=== PATIENT | female | born 1945 | race Caucasian/White ===

== ENCOUNTER → 2017-05-08 | Outpatient (CLI) | payer OTHER ==
[~2017-05-08] MED LIST: AMLO-114 PO; METO100T44 PO; VALS320T2 PO
--- NOTE | 2017-05-08 12:50 | DIAGNOSTIC IMAGING REPORT ---
CERVICAL SPINE 2 OR 3 VIEWS CLINICAL HISTORY: Cervical arthritis. COMPARISON STUDY: No previous studies for comparison. FINDINGS: There is no fracture within the cervical spine. Vertebral body heights are maintained. There is minimal disc space narrowing at C6-C7. There is moderate multilevel facet arthrosis. Prevertebral soft tissues are unremarkable. IMPRESSION: 1. No cervical spine fracture. 2. Mild multilevel degenerative disc disease and moderate multilevel facet arthrosis. Electronically signed by: Az Hackett M.D. 05/08/2017 12:49 PM Dictated Date/Time: 05/08/2017 12:45 PM
== END | disposition home or self-care (01) ==
LOC: C.RADBC 12:14
PROVIDERS: ATTEND Internal Medicine
DX: M46.92 Unspecified inflammatory spondylopathy, cervical region (principal)

== ENCOUNTER → 2017-06-06 | Outpatient (CLI) | payer OTHER ==
[~2017-06-06] MED LIST changes: -METO100T44 PO; +METO1TAB69 PO
[2017-06-06 10:57] LABS: BASO % 0.4 %; BASO ABS # 0.04 K/uL (0-0.2); COMPLETE YES; EOS % 6.1 %; HEMATOCRIT 43.7 % (37-47); IG% 0.2 %; LYMPH % 32.7 %; LYMPH ABS # 2.94 K/uL (1.2-3.4); MEAN CELL VOLUME 84.5 fL (80-100); MEAN CORPUSCULAR HEMOGLOBIN 28.8 pg (25-34); MEAN CORPUSCULAR HGB CONC 34.1 g/dl (32-36); MONO % 6.5 %; NEUT % 54.1 %; PLATELET COUNT 278 K/uL (130-400); RED BLOOD COUNT 5.17 M/uL (4.2-5.4); WHITE BLOOD COUNT 8.98 K/uL (4.8-10.8)
[2017-06-06 11:25] LABS: ALT/SGPT 31 U/L (12-78); AST/SGOT 21 U/L (15-37); BLOOD UREA NITROGEN 11 mg/dl (7-18); CALCIUM 9.4 mg/dl (8.5-10.1); CARBON DIOXIDE 31 mmol/L (21-32); CHLORIDE 100 mmol/L (98-107); CREATININE 0.62 mg/dl (0.60-1.20); GLUCOSE 87 mg/dl (70-99); POTASSIUM 3.6 mmol/L (3.5-5.1); SODIUM 137 mmol/L (136-145)
[2017-06-06 11:36] LABS: ALB/GLOB RATIO 0.9 (0.9-2); ALKALINE PHOSPHATASE 90 U/L (45-117); CHOLESTEROL 233 mg/dl (0-200); CHOLESTEROL/HDL RATIO 3.4; HDL CHOLESTEROL 69 mg/dl; LDL CHOLESTEROL CALCULATED 146 mg/dl; TRIGLYCERIDES 90 mg/dl (0-150); VERY LOW DENSITY LIPOPROT CALC 18 mg/dl
[2017-06-06 12:27] LABS: ESTIMATED AVERAGE GLUCOSE 120 mg/dl; HA1C FLAG Normal (Normal)
--- NOTE | 2017-06-12 13:07 | CODING QUERY MEDICAL NECESSITY ---
SUPPORTING DIAGNOSIS NEEDED Dr. Mtz, A supporting diagnosis is required for the test/procedure performed on this patient in order for us to be reimbursed by the patient's insurance. Please provide a supporting diagnosis for the following test/procedure listed below next to the test name along with your signature. *If there is no additional diagnosis for this patient that would support the following test/procedure please document that below next to the test/procedure. Test(s)/Procedure(s) that require a supporting diagnosis: * ([id number]) VITAMIN D ASSAY DIAGNOSIS: * [id number] GLYCATED HEMOGLOBIN DIAGNOSIS: DATE OF SERVICE: 06/06/17 Provider Signature: Date: Thank you [facility] Once completed, please kindly fax back to [phone] For questions please call [phone]
== END | disposition home or self-care (01) ==
LOC: C.LAB 10:12
PROVIDERS: ATTEND Internal Medicine
DX: K21.9 Gastro-esophageal reflux disease without esophagitis (principal); E55.9 Vitamin D deficiency, unspecified; R73.01 Impaired fasting glucose

== ENCOUNTER → 2017-07-07 | Outpatient (CLI) | payer OTHER | END | disposition home or self-care (01) | LOC: C.MAMM 09:47 | PROVIDERS: ATTEND Internal Medicine | DX: E55.9 Vitamin D deficiency, unspecified (principal); M85.851 Other specified disorders of bone density and structure, right thigh; M85.852 Other specified disorders of bone density and structure, left thigh ==

== ENCOUNTER → 2018-06-25 | Outpatient (CLI) | payer OTHER ==
[~2018-06-25] MED LIST changes: -AMLO-114 PO; +AMLO10TA3 PO; +METO100T44 PO; -METO1TAB69 PO
[2018-06-25 12:59] LABS: BASO % 0.4 %; BASO ABS # 0.04 K/uL (0-0.2); EOS ABS # 0.47 K/uL (0-0.5); HEMATOCRIT 42.2 % (37-47); HEMOGLOBIN 14.4 g/dL (12.0-16.0); IG# 0.01 K/uL (0.00-0.02); LYMPH % 31.9 %; LYMPH ABS # 3.01 K/uL (1.2-3.4); MEAN CELL VOLUME 84.2 fL (80-100); MEAN CORPUSCULAR HEMOGLOBIN 28.7 pg (25-34); MEAN CORPUSCULAR HGB CONC 34.1 g/dl (32-36); MEAN PLATELET VOLUME 12.4 fL (7.4-10.4); MONO % 8.4 %; MONO ABS # 0.79 K/uL (0.11-0.59); NEUT % 54.2 %; NEUT ABS # 5.12 K/uL (1.4-6.5); PLATELET COUNT 270 K/uL (130-400); RED CELL DISTRIBUTION WIDTH SD 42.7 fL (36.4-46.3); WHITE BLOOD COUNT 9.44 K/uL (4.8-10.8)
[2018-06-25 13:26] LABS: HEMOGLOBIN A1C 5.8 % (4.5-5.6)
[2018-06-25 13:54] LABS: ALBUMIN 3.6 gm/dl (3.4-5.0); ALKALINE PHOSPHATASE 85 U/L (45-117); ALT/SGPT 27 U/L (12-78); AST/SGOT 19 U/L (15-37); BLOOD UREA NITROGEN 11 mg/dl (7-18); CALCIUM 8.8 mg/dl (8.5-10.1); CARBON DIOXIDE 27 mmol/L (21-32); CHOLESTEROL 220 mg/dl (0-200); CREATININE 0.62 mg/dl (0.60-1.20); GLUCOSE 86 mg/dl (70-99); LDL CHOLESTEROL CALCULATED 134 mg/dl; POTASSIUM 3.6 mmol/L (3.5-5.1); SODIUM 135 mmol/L (136-145)
== END | disposition home or self-care (01) ==
LOC: C.LABBC 10:55
PROVIDERS: ATTEND Internal Medicine
DX: E55.9 Vitamin D deficiency, unspecified (principal); I10 Essential (primary) hypertension; K21.9 Gastro-esophageal reflux disease without esophagitis; K58.9 Irritable bowel syndrome, unspecified; R10.9 Unspecified abdominal pain; R73.01 Impaired fasting glucose

== ENCOUNTER 2023-09-14 15:24 | Observation (INO) ==
[2023-09-14] MEDS ORDERED: SODIUM CHLORIDE 0.9% 500 ML IV STA (15:49)
[2023-09-14] MEDS ORDERED: ACETAMINOPHEN 325 MG TAB PO STA (15:49)
[2023-09-14] MEDS ORDERED: ONDANSETRON INJ 2 MG/ML 2 ML VIAL IV STA ×2 (15:49→18:55)
[2023-09-14 17:56] LABS: Basophils # (auto) 0.02 K/uL (0.00-0.20); Basophils % (auto) 0.2 %; Hemoglobin 14.5 g/dl (12.0-16.0); Immature Granulocytes # (auto) 0.03 K/uL (0.01-0.20); Immature Granulocytes % (auto) 0.3 %; Lymphocytes # (auto) 0.72 K/uL (1.20-3.40); Lymphocytes % (auto) 7.1 %; Mean Corpuscular Hemoglobin 28.8 pg (25.0-34.0); Mean Corpuscular Hgb Conc 34.5 g/dL (32.0-36.0); Mean Corpuscular Volume 83.5 fL (80.0-100.0); Mean Platelet Volume 12.4 fL (9.4-12.4); Monocytes # (auto) 1.03 K/uL (0.11-0.59); Monocytes % (auto) 10.1 %; Neutrophils # (auto) 8.37 K/uL (1.40-6.50); Neutrophils % (auto) 82.3 %; Platelet Count 187 K/uL (130-400); RDW Coefficient of Variation 13.5 % (11.5-14.5); RDW Standard Deviation 41.1 fL (36.4-46.3); Red Blood Count 5.03 M/uL (4.20-5.40); White Blood Count 10.17 K/ul (4.8-10.8)
[2023-09-14 18:12] LABS: Alanine Aminotransferase 21 U/L (7-52); Albumin Globulin Ratio 1.2 (0.9-2); Albumin Level 4.3 gm/dl (3.4-5.0); Alkaline Phosphatase 62 U/L (34-104); Anion Gap 10 (3-11); Aspartate Aminotransferase 38 U/L (13-39); BUN Creatinine Ratio 15.8 (10-20); Bilirubin,Total 0.5 mg/dl (0.2-1.0); Blood Urea Nitrogen 12 mg/dl (6-23); Calcium 8.8 mg/dl (8.6-10.3); Carbon Dioxide 28 mmol/L (21-32); Chloride 88 mmol/L (98-107); Est GFR (African American) 87.7 ml/min; Est GFR (Non-African American) 75.7 ml/min; Globulin 3.5 gm/dl (2.5-4.0); Glucose 121 mg/dl (70-99(Fasting)); Lipase 28 U/L (11-82); Potassium 3.3 mmol/L (3.5-5.1); Sodium 126 mmol/L (136-145); Total Protein 7.8 gm/dl (6.0-8.3)
[2023-09-14 18:19] LABS: Troponin I High Sensitivity 35.9 pg/ml (0-14)
[2023-09-14] MEDS ORDERED: ONDANSETRON INJ 2 MG/ML 2 ML VIAL ONE (18:38)
[2023-09-14] MEDS ORDERED: ACETAMINOPHEN 325 MG TAB ONE (18:39)
[2023-09-14] MEDS ORDERED: SODIUM CHLORIDE 0.9% 1,000 ML IV ONE (18:55)
[2023-09-14 19:15] LABS: Appearance Urine Clear (Clear); Bacteria Urine Automated Negative (Negative); Bilirubin Urine Negative (Negative); Blood Urine Negative (Negative); Color Urine Yellow; Epithelial Cell Urine Auto >30 /lpf (0-5); Glucose Urine UA Negative (Negative); Ketones Urine 3+ (Negative); Leukocyte Esterase Urine Negative (Negative); Nitrite Urine Negative (Negative); Protein Urine 1+ (Negative); Urobilinogen Urine Negative (Negative)
[2023-09-14] MEDS ORDERED: OPTIRAY 320 500ml IV ONE (19:27)
[2023-09-14 19:30] LABS: Mucus Urine Present (None Prsent)
--- NOTE | 2023-09-14 19:47 | XRay Report ---
XR chest 1V portable CLINICAL HISTORY: fever TECHNIQUE: Single frontal radiograph of the chest was obtained. Comparison: Comparison is made to chest radiograph 04/16/2020 FINDINGS: No lines and tubes are seen. Calcified aortic knob is seen. The lungs are clear. No evidence of pleur al effusion or pneumothorax. IMPRESSION: No acute abnormalities and in particular no radiographic evidence of pneumonia. ACT 112: Negative or not required by law. Electronically signed by: Milo Do M.D. 09/14/2023 7:46 PM
--- NOTE | 2023-09-14 19:59 | CT Scan Report ---
CT angio chest PE protocol CLINICAL HISTORY: ro PE TECHNIQUE: Multidetector row helical CT of the chest was performed with angiographic protocol. Perez l and sagittal reformations were obtained. Coronal and sagittal MIPS were obtained from the axial max a set and were submitted for review. Automated dose lowering techniques and/or adjustment according to patient size were utilized for this exam. CT DOSE: 1976.24 mGy.cm Comparison: None available at the time of this dictation. FINDINGS: Lungs and pleura: Minimal atelectasis at the left lung base. Biapical scarring is seen. Heart and pericardium: Heart size is normal. No pericardial effusion. Vessels: No evidence of pulmonary embolism. Mediastinum and lorenza: Subcentimeter lymph nodes are seen. Chest wall and lower neck: Unremarkable. Abdomen: Cholelithiasis is seen without evidence of cholecystitis. Hepatic cysts are partially visual ized. There is a small hiatal hernia. Bones: Degenerative changes in the thoracic spine. IMPRESSION: No acute abnormality and in particular no evidence of pulmonary embolus. ACT 112: Negative or not required by law. Electronically signed by: Milo Do M.D. 09/14/2023 7:58 PM
--- NOTE | 2023-09-14 19:59 | CT Scan Report ---
CT cervical spine wo con CLINICAL HISTORY: fall TECHNIQUE: Multidetector row helical CT of the cervical spine was performed without administration of intravenous contrast. Coronal and sagittal reformations were obtained. Automated dose lowering techn iques and/or adjustment according to patient size were utilized for this exam. Comparison: Comparison is made to cervical spine radiographs 05/18/2017 and thyroid ultrasound 06/10/20 16 FINDINGS: No acute fractures or subluxations are identified. Degenerative changes are seen in the visualized sp ine. The alignment is normal. There is a 15 mm right thyroid nodule. IMPRESSION: 1. Degenerative changes without evidence of acute bony injury. 2. 15 mm right thyroid nodule which has previously been evaluated by ultrasound. ACT 112: Negative or not required by law. Electronically signed by: Milo Do M.D. 09/14/2023 7:56 PM
--- NOTE | 2023-09-14 20:03 | CT Scan Report ---
CT head/brain wo con CLINICAL HISTORY: fall Technique: Contiguous axial CT images of the head were acquired from the base of the skull to the zuleyma minna without intravenous contrast administration. Images were viewed in brain[facility]. Automated dose lowering techniques and/or adjustment according to patient size were utilized for this exam. Comparison: None available at the time of this dictation. Findings: The ventricles, basal cisterns, and cerebral sulci are normal. There is no acute intracranial hemorrh age or evidence of acute territorial infarction. Neither mass effect, shift of the midline structures , nor abnormal extra-axial fluid collections are shown. Imaged portions of the paranasal sinuses and mastoid air cells are clear. The orbits appear normal. There are no acute fractures of the calvaria or scalp swelling. Impression: No acute intracranial hemorrhage, no evidence of acute territorial infarction or other acute intracra nial disease process. ACT 112: Negative or not required by law. Electronically signed by: Milo Do M.D. 09/14/2023 8:02 PM
[2023-09-14 20:04] LABS: Adenovirus PCR Not Detected (NotDetected); Bordetella parapertussis PCR Not Detected (NotDetected); Bordetella pertussis PCR Not Detected (NotDetected); Chlamydia pneumoniae PCR Not Detected (NotDetected); Coronavirus 229E PCR Not Detected (NotDetected); Coronavirus HKU1 PCR Not Detected (NotDetected); Coronavirus NL63 PCR Not Detected (NotDetected); Coronavirus OC43PCR Not Detected (NotDetected); Human Metapneumovirus PCR Not Detected (NotDetected); Influenza A PCR Not Detected (NotDetected); Influenza B PCR Not Detected (NotDetected); Mycoplasma pneumoniae PCR Not Detected (NotDetected); Parainfluenza Virus 1 PCR Not Detected (NotDetected); Parainfluenza Virus 2 PCR Not Detected (NotDetected); Parainfluenza Virus 3 PCR Not Detected (NotDetected); Parainfluenza Virus 4 PCR Not Detected (NotDetected); Respiratory Syncytial VirusPCR Not Detected (NotDetected); Rhinovirus/Enterovirus PCR Not Detected (NotDetected)
[2023-09-14 20:07] LABS: Coronavirus CoV-2 (COVID19)PCR DETECTED (NotDetected)
--- NOTE | 2023-09-14 22:40 | History & Physical Report ---
Date of Service September 14, 2023 Assessment & Plan (1) Fall: Plan: 78yo Female with PMH PMR IBS insomnia HLD anxiety GERD HTN rosacea here for concern COVID and fall. Fall -CT head C spine chest negative for fracture, bleed -admit to med/tele -ordered PT/OT COVID 19 -in ED received zofran tylenol IVF, symptoms improved -CTA chest wnl -ordered isolation precautions -slight wheeze/rhonchi noted in b/l lung bases, ordered duoneb -ordered mucinex -prn tylenol for fever, pain Hyponatremia -Na 126 -likely 2/2 to decreased food intake, increased water, and HCTZ -received 1L NSS in ED -HCTZ on hold -trend bmp -urine osm, urine Na, serum osm pending Elevated Troponin -trop 35.9, likely demand ischemia -repeat downtrending Thyroid nodule -incidental finding on CT C spine 15mm compared to thyroid US in 2016, history of thyroid surgery -TSH pending PMR -continue prednisone HTN -hold HCTZ -continue metoprolol telmisartan amlodipine Insomnia -continue melatonin amitriptyline. 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 PGY 3, FCM (2) Hyponatremia: (3) Elevated troponin: (4) PMR (polymyalgia rheumatica): (5) Irritable bowel syndrome: (6) Hyperlipidemia, acquired: (7) Insomnia: (8) Generalized anxiety disorder: (9) HTN (hypertension): History of Present Illness Chief Complaint: Fall Primary Care Provider: Kisha Zhou MD 78yo Female with PMH PMR IBS insomnia HLD anxiety GERD HTN rosacea here for concern COVID and fall. Patient states her COVID19 symptoms started on friday had headache cough sore throat nausea poor appetite, she had not been eating regular meals was drinking lots of water taking her medications sleeping more. She took tylenol for her symptoms. This is her first time with COVID 19. Patient was planning to go to ED for COVID symptoms, she took a shower first became lightheaded in shower fell hit her head and scrapped skin on her right middle finger. In ED she was given zofran tylenol and 1L NSS which improved her symptoms. CT scan head c spine chest wnl. Patient understands her sodium was incidentally low today. Patient is ambulatory at baseline, lives with and son. Son caught COVID on friday. Allergies Allergy/AdvReac Type Severity Reaction Status Date / Time lansoprazole Allergy Unknown Unknown Verified 09/14/23 22:11 lisinopril Allergy Unknown Cough Verified 09/14/23 22:11 naproxen Allergy Unknown Unknown Verified 09/14/23 22:11 [From PREVACID NapraPAC] sulfamethoxazole Allergy Unknown Headache Verified 09/14/23 22:11 and nausea. trimethoprim Allergy Unknown Headache Verified 09/14/23 22:11 and nausea. chlorhexidine AdvReac Severe -severe Verified 09/14/23 22:11 skin rash Home Medications Medication Instructions Recorded Confirmed Type cholecalciferol (vitamin D3) 50 5,000 units PO DAILY 01/11/20 09/17/23 History mcg (2,000 unit) tablet diclofenac sodium 1 % topical gel 2 gm topical QID PRN Pain 07/11/20 09/17/23 History nystatin-triamcinolone 100,000 1 appln topical DAILY PRN skin 07/11/20 09/17/23 Rx unit/gram-0.1 % topical ointment irritation #30 grams mupirocin 2 % topical ointment 1 applic topical BID PRN Skin 01/23/21 09/17/23 History Irritation vit C 250 mg-vit E 90 mg-zinc 40 1 tab PO .once a day 04/05/21 09/17/23 History mg-copper 1 [id number] capsule (PreserVision AREDS-2) ascorbic acid (vitamin C) 1,000 mg 1 g PO DAILY 09/16/22 09/17/23 History capsule metoprolol succinate 100 mg 100 mg PO DAILY #90 tabs 02/26/23 09/17/23 Rx tablet,extended release 24 hr prednisone 5 mg tablet 5 mg PO DAILY #90 tabs 08/20/23 09/17/23 Rx amlodipine 10 mg tablet 10 mg PO DAILY #90 tabs 08/28/23 09/17/23 Rx melatonin 3 mg tablet 3 mg PO HS 09/14/23 09/17/23 History telmisartan 40 mg tablet 40 mg PO DAILY 09/14/23 09/17/23 History prednisone 10 mg tablet See Rx Instructions .Route 09/16/23 09/17/23 Rx .COMPLEX #12 tabs amitriptyline 10 mg tablet 10 - 20 mg PO DAILY 09/17/23 09/17/23 History cholecalciferol (vitamin D3) 25 1,000 unit PO QAM #0 caps 09/17/23 09/17/23 Rx mcg (1,000 unit) capsule Past Med/Surg History Medical History Abdominal pain of unknown cause Cervical arthritis Chicken pox Diverticulitis Fibroids Fuchs' corneal dystrophy Gastroesophageal reflux disease without esophagitis Generalized anxiety disorder Headache Hyperlipidemia, acquired Impaired fasting glucose Insomnia Irritable bowel syndrome Mesenteric panniculitis Osteopenia Postmenopause Rosacea Sleep terror disorder Supraventricular tachycardia Thyroid disease Vitamin D deficiency Surgical History H/O thyroidectomy History of esophagogastroduodenoscopy (EGD) History of hysteroscopy Hx of tonsillectomy S/P colonoscopy S/P D&C (status post dilation and curettage) polyp removal S/P RAY-BSO 05/2020, Dr. Ayoub S/P thyroid surgery Family History Unknown Cardiovascular disease Father Coronary heart disease Diabetes Hyperlipemia Myocardial infarction Mother Lung cancer Cancer Brother Stomach cancer Coronary heart disease Acute myocardial infarction Lung cancer Hypertension Hyperlipemia Stroke syndrome Myocardial infarction Cancer Stroke Sister Hyperlipemia Hypertension Grandfather (Paternal) Prostate cancer Other No family history of allergies No family history of bleeding disorder Thyroid disease Denies family history of Ovarian cancer Hearing loss Breast cancer Colorectal cancer Asthma Social History Smoking Status: Never smoker Second Hand Exposure: No; Do You Dip or Chew Tobacco: No; Hx Alcohol Use: Yes Alcohol type: wine Alcohol Intake Frequency: Monthly or Less Alcohol Intake Frequency Comment: rarely has wine Hx Substance Use: No Preferred Language: Setswana Communication Ability: Effective Visual Impairment: Diminished Hearing Ability: Normal Oracle Applications Developer Required: No Beliefs That Will Affect Care: None marital status: Current Living Situation: Spouse current occupational status: retired How many Children do You have: 4 Feels Safe at Home: Yes Childhood Exposure to Second-Hand Smoke: Yes caffeine: Yes (coffee and tea ) Dental Care, Regularly: Yes Physical Activity Frequency: Does not Exercise Seatbelt Use: always Sunscreen Use: No (doesn't go out in the sun ) Assistive Devices: None Physical Exam Constitutional: well developed, well nourished, cooperative and comfortable Eyes: PERRL, conjunctivae normal, anicteric sclerae ENMT: external ear and nose normal, oropharynx normal Neck: trachea midline, no thyromegaly Respiratory: normal respiratory effort Auscultation: + rhonchi and + wheezes (b/l lung bases) Cardiovascular: Rate/Rhythm: regular rate and regular rhythm Gastrointestinal (Abdomen): Inspection/Auscultation: abdomen normal to inspection Percussion/Palpation: abdomen soft; abdomen nontender Skin: scar noted on chest from thyroid surgery Results & Data Results & Data Vital Signs (Past 12 Hours) Vital Signs Temp Pulse Pulse Resp BP BP Pulse Ox 09/14/23 21:00 65 16 134/68 94 09/14/23 19:00 72 22 96 09/14/23 19:00 37.5 C 74 18 142/70 H 96 09/14/23 18:49 74 09/14/23 17:24 09/14/23 15:47 38.4 C H 77 16 123/64 96 O2 Del Method 09/14/23 21:00 Room Air 09/14/23 19:00 09/14/23 19:00 Room Air 09/14/23 18:49 09/14/23 17:24 Room Air 09/14/23 15:47 Room Air Supervising Physician Co-Signing Physician Notes Attending addendum: I have physically seen this patient, have supervised the medical residents activities, and agree with the H&P unless as otherwise noted. Assessment and Plan: Status post fall- CT head, CT spine and CT chest negative Admit to med telemetry to monitor for possible arrhythmia Consult PT/OT Hyponatremia- Sodium 126 History consists of decreased intake of food, increase water intake, and being on HCTZ Serum and urine osmolality pending Hold HCTZ Status post 1 L normal saline in ED Patient history significant for decreased oral intake Elevated troponin- Troponin 35.9 Likely type II supply/demand mismatch Follow serially PMR- Continue prednisone Hold on stress dosing Resident Activity Tracking Resident Involvement: Resident Care Provided Care Provided: Adult Hospital Medicine (5) Irritable bowel syndrome Irritable bowel syndrome type: unspecified Qualified Code(s): K58.9 - Irritable bowel syndrome without diarrhea (9) HTN (hypertension) Hypertension type: essential hypertension Qualified Code(s): I10 - Essential (primary) hypertension
[2023-09-14] MEDS ORDERED: MELATONIN 3 MG TAB PO PRN (22:58)
[2023-09-14] MEDS ORDERED: ALBUT/IPRATROP 3MG/0.5MG NEB 3 ML VIAL NEB ONE (22:59)
[2023-09-14] MEDS ORDERED: AMITRIPTYLINE HCL 10 MG TAB PO ONE (22:59)
[2023-09-14] MEDS ORDERED: POLYETHYLENE (MIRALAX) 17 GM PACK PO PRN (23:42)
[2023-09-14] MEDS ORDERED: ACETAMINOPHEN 325 MG TAB PO PRN (23:42)
[2023-09-14] MEDS ORDERED: ONDANSETRON INJ 2 MG/ML 2 ML VIAL IV PRN (23:42)
--- NOTE | 2023-09-15 00:35 | Emergency Department Note ---
History of Present Illness General Chief complaint: Flu Like Symptoms Stated complaint: COVID+, DIZZINESS, FALL IN SHOWER Time Seen by Provider: 09/14/23 18:36 History of Present Illness Provider complaint: Weakness fall in shower COVID 78-year-old female presents emergency department for weakness COVID and fall in the shower. Patient states she fell earlier today and hit her head. She denies any loss of consciousness. No blood thinners. Patient reports she tested positive for COVID-19 on Friday. She reports increasing weakness. She reports nausea vomiting cough body aches fever and dizziness. Home Medications Medication Instructions Recorded Confirmed Type cholecalciferol (vitamin D3) 50 5,000 units PO DAILY 01/11/20 09/14/23 History mcg (2,000 unit) tablet diclofenac sodium 1 % topical gel 2 gm topical QID PRN Pain 07/11/20 09/14/23 History nystatin-triamcinolone 100,000 1 appln topical DAILY PRN skin 07/11/20 09/14/23 Rx unit/gram-0.1 % topical ointment irritation #30 grams mupirocin 2 % topical ointment 1 applic topical BID PRN Skin 01/23/21 09/14/23 History Irritation vit C 250 mg-vit E 90 mg-zinc 40 1 tab PO .once a day 04/05/21 09/14/23 History mg-copper 1 [id number] capsule (PreserVision AREDS-2) ascorbic acid (vitamin C) 1,000 mg 1 g PO DAILY 09/16/22 09/14/23 History capsule metoprolol succinate 100 mg 100 mg PO DAILY #90 tabs 02/26/23 09/14/23 Rx tablet,extended release 24 hr hydrochlorothiazide 12.5 mg tablet 12.5 mg PO DAILY #90 tabs 06/25/23 09/14/23 Rx prednisone 5 mg tablet 5 mg PO DAILY #90 tabs 08/20/23 09/14/23 Rx amlodipine 10 mg tablet 10 mg PO DAILY #90 tabs 08/28/23 09/14/23 Rx amitriptyline 10 mg tablet 10 - 20 mg PO DAILY 09/14/23 09/14/23 History melatonin 3 mg tablet 3 mg PO HS 09/14/23 09/14/23 History telmisartan 40 mg tablet 40 mg PO DAILY 09/14/23 09/14/23 History Allergies Allergy/AdvReac Type Severity Reaction Status Date / Time lansoprazole Allergy Unknown Unknown Verified 09/14/23 22:11 lisinopril Allergy Unknown Cough Verified 09/14/23 22:11 naproxen Allergy Unknown Unknown Verified 09/14/23 22:11 [From PREVACID NapraPAC] sulfamethoxazole Allergy Unknown Headache Verified 09/14/23 22:11 and nausea. trimethoprim Allergy Unknown Headache Verified 09/14/23 22:11 and nausea. chlorhexidine AdvReac Severe -severe Verified 09/14/23 22:11 skin rash Past Med/Surg History Medical History Abdominal pain of unknown cause Cervical arthritis Chicken pox Diverticulitis Fibroids Fuchs' corneal dystrophy Gastroesophageal reflux disease without esophagitis Generalized anxiety disorder Headache Hyperlipidemia, acquired Impaired fasting glucose Insomnia Irritable bowel syndrome Mesenteric panniculitis Osteopenia Postmenopause Rosacea Sleep terror disorder Supraventricular tachycardia Thyroid disease Vitamin D deficiency Surgical History H/O thyroidectomy History of esophagogastroduodenoscopy (EGD) History of hysteroscopy Hx of tonsillectomy S/P colonoscopy S/P D&C (status post dilation and curettage) polyp removal S/P [facility] 05/2020, Dr. Ayoub S/P thyroid surgery Family History Unknown Cardiovascular disease Father Coronary heart disease Diabetes Hyperlipemia Myocardial infarction Mother Lung cancer Cancer Brother Stomach cancer Coronary heart disease Acute myocardial infarction Lung cancer Hypertension Hyperlipemia Stroke syndrome Myocardial infarction Cancer Stroke Sister Hyperlipemia Hypertension Grandfather (Paternal) Prostate cancer Other No family history of allergies No family history of bleeding disorder Thyroid disease Denies family history of Ovarian cancer Hearing loss Breast cancer Colorectal cancer Asthma Social History Smoking Status: Never smoker Second Hand Exposure: No; Do You Dip or Chew Tobacco: No; Hx Alcohol Use: Yes Alcohol type: wine Alcohol Intake Frequency: Monthly or Less Alcohol Intake Frequency Comment: rarely has wine Hx Substance Use: No Preferred Language: [place] Communication Ability: Effective Visual Impairment: Diminished Hearing Ability: Normal Clinical Pharmacy Specialist Required: No marital status: Current Living Situation: Spouse current occupational status: retired How many Children do You have: 4 Feels Safe at Home: Yes Childhood Exposure to Second-Hand Smoke: Yes caffeine: Yes (coffee and tea ) Dental Care, Regularly: Yes Physical Activity Frequency: Does not Exercise Seatbelt Use: always Sunscreen Use: No (doesn't go out in the sun ) Physical Exam Vital Signs Vital Signs - 24 hr 09/14/23 15:47 09/14/23 17:24 09/14/23 18:49 Temperature 38.4 C H Temperature Source Temporal Artery Scan Pulse Rate 77 74 Pulse Rate [Apical] Respiratory Rate 16 Respiratory Effort / Characteristics Non-Labored Non-Labored Respiratory Depth Normal Normal Respiratory Pattern Regular Blood Pressure 123/64 Blood Pressure [Right Arm] Blood Pressure Mean 83 Blood Pressure Mean [Right Arm] Pulse Oximetry 96 Oxygen Delivery Method Room Air Room Air Sepsis Recent Fever Within 48 Hours No Sepsis New/Unexplained Change in Mental Status No Sepsis Action Taken by Nursing No Action Required 09/14/23 19:00 09/14/23 19:00 09/14/23 21:00 Temperature 37.5 C Temperature Source Oral Pulse Rate 72 Pulse Rate [Apical] 74 65 Respiratory Rate 18 22 16 Respiratory Effort / Characteristics Non-Labored Non-Labored Spontaneous Respiratory Depth Normal Normal Respiratory Pattern Regular Regular Blood Pressure Blood Pressure [Right Arm] 142/70 H 134/68 Blood Pressure Mean Blood Pressure Mean [Right Arm] 94 90 Pulse Oximetry 96 96 94 Oxygen Delivery Method Room Air Room Air Sepsis Recent Fever Within 48 Hours Sepsis New/Unexplained Change in Mental Status Sepsis Action Taken by Nursing Physical Exam HENT: Exam performed. -Head: Normocephalic and atraumatic. -Right Ear: External ear normal. No mastoid erythema -Left Ear: External ear normal. No mastoid erythema -Mouth/Throat: The oropharynx is clear and moist. No trismus in the jaw. No dental abscesses or uvula swelling. No oropharyngeal exudate or tonsillar abscesses. EYES: Conjunctivae and EOM are normal. Pupils are equal, round, and reactive to light. Right eye exhibits no discharge. Left eye exhibits no discharge. No scleral icterus. NECK: Normal range of motion. Neck supple. No JVD present. No spinous process tenderness present. CV: Normal rate, regular rhythm, normal heart sounds and intact distal pulses. There is no peripheral edema. Palpable radial pulses bue. PULM/CHEST: Effort normal and breath sounds normal. No respiratory distress. No stridor. She has no wheezes. She has no rales. ABD: The abdomen is soft. Bowel sounds are normal. She has no distension. No mass is present. There is no tenderness. There is no rebound, no guarding, no Pozo's sign and no tenderness at McBurney's point. Rovsig negative MUSC/SKEL: Normal range of motion. There is no peripheral edema, tenderness or deformity. Pelvis stable. No C, T, or L-spine tenderness. LYMPH: No cervical adenopathy. NEURO: She is alert and oriented to person, place, and time. She has normal strength. No cranial nerve deficit or sensory deficit. Coordination and gait normal. GCS eye subscore is 4. GCS verbal subscore is 5. GCS motor subscore is 6. Cerebellar tests wnl. SKIN: Skin is warm and dry. She is not diaphoretic. PSYCH: She has a normal mood and affect. Behavior is normal. Judgment and thought content normal. Course Course 1835: The patient was evaluated in room C5. A complete history and physical exam was performed Cardiac monitoring: An order was placed for continuous cardiac monitoring. The monitor shows a rate of 70 with sinus rhythm interpreted by vt 2049: Vital signs stable. Labs are within normal limits with exception of sodium of 126 and a elevated high-sensitivity troponin of 35.9. Imaging shows no pulm embolus or traumatic injury. [facility]vera's team will be notified. Administered Medications Discontinued Medications Acetaminophen (Acetaminophen 325 Mg Tab) 650 mg PO NOW STA Stop: 09/14/23 15:50 Last Admin: 09/14/23 19:15 Dose: 650 mg Documented By: MIGUEL Acetaminophen (Acetaminophen 325 Mg Tab) Confirm Administered Dose 650 mg .ROUTE .STK-MED ONE Stop: 09/14/23 18:40 Last Admin: 09/14/23 19:17 Dose: Not Given Documented By: MIGUEL Sodium Chloride (Nss) 500 mls @ 999 mls/hr IV .Q31M STA Stop: 09/14/23 16:19 Last Admin: 09/14/23 19:22 Dose: Not Given Documented By: MIGUEL Sodium Chloride (Nss) 1,000 mls @ 999 mls/hr IV .Q1H1M ONE Stop: 09/14/23 19:55 Last Infusion: 09/14/23 21:16 Dose: 0 mls/hr Documented By: Admin: 09/14/23 19:14 Dose: 999 mls/hr Documented By: MIGUEL Ioversol (Optiray 320 500ml) 114 ml IV ONCE ONE Stop: 09/14/23 19:28 Last Admin: 09/14/23 19:27 Dose: 114 ml Documented By: DARLING Ondansetron HCl (Ondansetron Inj 2 Mg/Ml 2 Ml Vial) 4 mg IV NOW STA Stop: 09/14/23 15:50 Last Admin: 09/14/23 19:02 Dose: 4 mg Documented By: MIGUEL Ondansetron HCl (Ondansetron Inj 2 Mg/Ml 2 Ml Vial) Confirm Administered Dose 4 mg .ROUTE .STK-MED ONE Stop: 09/14/23 18:39 Last Admin: 09/14/23 19:17 Dose: Not Given Documented By: MIGUEL Ondansetron HCl (Ondansetron Inj 2 Mg/Ml 2 Ml Vial) 4 mg IV NOW STA Stop: 09/14/23 18:56 Last Admin: 09/14/23 19:23 Dose: Not Given Documented By: MIGUEL Medical Decision Making Laboratory Data Attestation: I reviewed the patient's lab results. 09/14/23 17:31 09/14/23 17:31 Lab Results 09/14/23 09/14/23 09/14/23 Range/Units 17:31 17:31 17:31 WBC 10.17 (4.8-10.8) K/ul RBC 5.03 (4.20-5.40) M/uL Hgb 14.5 (12.0-16.0) g/dl Hct 42.0 (37.0-47.0) % MCV 83.5 (80.0-100.0) fL MCH 28.8 (25.0-34.0) pg MCHC 34.5 (32.0-36.0) g/dL RDW Std Deviation 41.1 (36.4-46.3) fL RDW Coeff of Adalid 13.5 (11.5-14.5) % Plt Count 187 (130-400) K/uL MPV 12.4 (9.4-12.4) fL Immature Gran % (Auto) 0.3 % Neut % (Auto) 82.3 % Lymph % (Auto) 7.1 % Rice % (Auto) 10.1 % Eos % (Auto) 0.0 % Baso % (Auto) 0.2 % Neut # (Auto) 8.37 H (1.40-6.50) K/uL Lymph # (Auto) 0.72 L (1.20-3.40) K/uL Rice # (Auto) 1.03 H (0.11-0.59) K/uL Eos # (Auto) 0.00 (0.00-0.50) K/uL Baso # (Auto) 0.02 (0.00-0.20) K/uL Immature Gran # (Auto) 0.03 (0.01-0.20) K/uL Sodium 126 L (136-145) mmol/L Potassium 3.3 L (3.5-5.1) mmol/L Chloride 88 L (98-107) mmol/L Carbon Dioxide 28 (21-32) mmol/L Anion Gap 10 (3-11) BUN 12 (6-23) mg/dl Creatinine 0.76 (0.6-1.2) mg/dl Est Cr Clr Drug Dosing Not Reportable Est GFR ( Amer) 87.7 ml/min Est GFR (Non-Af Amer) 75.7 ml/min BUN/Creatinine Ratio 15.8 (10-20) Glucose 121 H (70-99(Fasting)) mg/dl Calcium 8.8 (8.6-10.3) mg/dl Magnesium 1.7 (1.7-2.4) mg/dl Total Bilirubin 0.5 (0.2-1.0) mg/dl AST 38 (13-39) U/L ALT 21 (7-52) U/L Alkaline Phosphatase 62 (34-104) U/L Troponin I High Sens 35.9 H (0-14) pg/ml Total Protein 7.8 (6.0-8.3) gm/dl Albumin 4.3 (3.4-5.0) gm/dl Globulin 3.5 (2.5-4.0) gm/dl Albumin/Globulin Ratio 1.2 (0.9-2) Lipase 28 (11-82) U/L Urine Color Urine Appearance (Clear) Urine pH (4.5-7.5) Ur Specific [place] (1.000-1.030) Urine Protein (Negative) Urine Glucose (UA) (Negative) Urine Ketones (Negative) Urine Blood (Negative) Urine Nitrite (Negative) Urine Bilirubin (Negative) Urine Urobilinogen (Negative) Ur Leukocyte Esterase (Negative) Urine WBC (Auto) (0-5) /hpf Urine RBC (Auto) (0-4) /hpf U Hyaline Cast (Auto) (0-5) /lpf U Epithel Cells (Auto) (0-5) /lpf Urine Bacteria (Auto) (Negative) Urine Mucus (None Prsent) Adenovirus (PCR) (NotDetected) B. pertussis DNA (PCR) (NotDetected) B.parapertussis DNA PCR (NotDetected) C. pneumoniae DNA (PCR) (NotDetected) Coronavirus OC43 (PCR) (NotDetected) Coronavirus HKU1 (PCR) (NotDetected) Coronavirus 229E (PCR) (NotDetected) SARS-CoV-2 (PCR) (NotDetected) Coronavirus NL63 (PCR) (NotDetected) Human Metapneumovir PCR (NotDetected) Influenza Type A (PCR) (NotDetected) Influenza Type B (PCR) (NotDetected) M. pneumoniae (PCR) (NotDetected) Parainfluenza 1 (PCR) (NotDetected) Parainfluenza 2 (PCR) (NotDetected) Parainfluenza 3 (PCR) (NotDetected) Parainfluenza 4 (PCR) (NotDetected) RSV (PCR) (NotDetected) Entero/Rhino (PCR) (NotDetected) 09/14/23 09/14/23 Range/Units 18:44 18:46 WBC (4.8-10.8) K/ul RBC (4.20-5.40) M/uL Hgb (12.0-16.0) g/dl Hct (37.0-47.0) % MCV (80.0-100.0) fL MCH (25.0-34.0) pg MCHC (32.0-36.0) g/dL RDW Std Deviation (36.4-46.3) fL RDW Coeff of Adalid (11.5-14.5) % Plt Count (130-400) K/uL MPV (9.4-12.4) fL Immature Gran % (Auto) % Neut % (Auto) % Lymph % (Auto) % Rice % (Auto) % Eos % (Auto) % Baso % (Auto) % Neut # (Auto) (1.40-6.50) K/uL Lymph # (Auto) (1.20-3.40) K/uL Rice # (Auto) (0.11-0.59) K/uL Eos # (Auto) (0.00-0.50) K/uL Baso # (Auto) (0.00-0.20) K/uL Immature Gran # (Auto) (0.01-0.20) K/uL Sodium (136-145) mmol/L Potassium (3.5-5.1) mmol/L Chloride (98-107) mmol/L Carbon Dioxide (21-32) mmol/L Anion Gap (3-11) BUN (6-23) mg/dl Creatinine (0.6-1.2) mg/dl Est Cr Clr Drug Dosing Est GFR ( Amer) ml/min Est GFR (Non-Af Amer) ml/min BUN/Creatinine Ratio (10-20) Glucose (70-99(Fasting)) mg/dl Calcium (8.6-10.3) mg/dl Magnesium (1.7-2.4) mg/dl Total Bilirubin (0.2-1.0) mg/dl AST (13-39) U/L ALT (7-52) U/L Alkaline Phosphatase (34-104) U/L Troponin I High Sens (0-14) pg/ml Total Protein (6.0-8.3) gm/dl Albumin (3.4-5.0) gm/dl Globulin (2.5-4.0) gm/dl Albumin/Globulin Ratio (0.9-2) Lipase (11-82) U/L Urine Color Yellow Urine Appearance Clear (Clear) Urine pH 6.0 (4.5-7.5) Ur Specific [place] 1.020 (1.000-1.030) Urine Protein 1+ H (Negative) Urine Glucose (UA) Negative (Negative) Urine Ketones 3+ H (Negative) Urine Blood Negative (Negative) Urine Nitrite Negative (Negative) Urine Bilirubin Negative (Negative) Urine Urobilinogen Negative (Negative) Ur Leukocyte Esterase Negative (Negative) Urine WBC (Auto) 1-5 (0-5) /hpf Urine RBC (Auto) 10-30 H (0-4) /hpf U Hyaline Cast (Auto) 5-10 H (0-5) /lpf U Epithel Cells (Auto) >30 H (0-5) /lpf Urine Bacteria (Auto) Negative (Negative) Urine Mucus Present A (None Prsent) Adenovirus (PCR) Not Detected (NotDetected) B. pertussis DNA (PCR) Not Detected (NotDetected) B.parapertussis DNA PCR Not Detected (NotDetected) C. pneumoniae DNA (PCR) Not Detected (NotDetected) Coronavirus OC43 (PCR) Not Detected (NotDetected) Coronavirus HKU1 (PCR) Not Detected (NotDetected) Coronavirus 229E (PCR) Not Detected (NotDetected) SARS-CoV-2 (PCR) DETECTED A* (NotDetected) Coronavirus NL63 (PCR) Not Detected (NotDetected) Human Metapneumovir PCR Not Detected (NotDetected) Influenza Type A (PCR) Not Detected (NotDetected) Influenza Type B (PCR) Not Detected (NotDetected) M. pneumoniae (PCR) Not Detected (NotDetected) Parainfluenza 1 (PCR) Not Detected (NotDetected) Parainfluenza 2 (PCR) Not Detected (NotDetected) Parainfluenza 3 (PCR) Not Detected (NotDetected) Parainfluenza 4 (PCR) Not Detected (NotDetected) RSV (PCR) Not Detected (NotDetected) Entero/Rhino (PCR) Not Detected (NotDetected) Imaging Data Attestation: I personally reviewed and interpreted this imaging study as follows: My Impression: Chest x-ray negative. Airway clear. No pneumothorax. No consolidation. No cardiomegaly or cephalization.. No free air under the diaphragm. No fractures of the skeletal structures. Radiologist's Impression: Chest X-Ray 09/14/23 18:22 XR chest 1V portable CLINICAL HISTORY: fever TECHNIQUE: Single frontal radiograph of the chest was obtained. Comparison: Comparison is made to chest radiograph 04/16/2020 FINDINGS: No lines and tubes are seen. Calcified aortic knob is seen. The lungs are clear. No evidence of pleural effusion or pneumothorax. IMPRESSION: No acute abnormalities and in particular no radiographic evidence of pneumonia. ACT 112: Negative or not required by law. Electronically signed by: Milo Do M.D. 09/14/2023 7:46 PM Chest CTA 09/14/23 18:56 CT angio chest PE protocol CLINICAL HISTORY: ro PE TECHNIQUE: Multidetector row helical CT of the chest was performed with angiographic protocol. Coronal and sagittal reformations were obtained. Coronal and sagittal MIPS were obtained from the axial data set and were submitted for review. Automated dose lowering techniques and/or adjustment according to patient size were utilized for this exam. CT DOSE: 1976.24 mGy.cm Comparison: None available at the time of this dictation. FINDINGS: Lungs and pleura: Minimal atelectasis at the left lung base. Biapical scarring is seen. Heart and pericardium: Heart size is normal. No pericardial effusion. Vessels: No evidence of pulmonary embolism. Mediastinum and lorenza: Subcentimeter lymph nodes are seen. Chest wall and lower neck: Unremarkable. Abdomen: Cholelithiasis is seen without evidence of cholecystitis. Hepatic cysts are partially visualized. There is a small hiatal hernia. Bones: Degenerative changes in the thoracic spine. IMPRESSION: No acute abnormality and in particular no evidence of pulmonary embolus. ACT 112: Negative or not required by law. Electronically signed by: Milo Do M.D. 09/14/2023 7:[address] 09/14/23 18:56 CT head/brain wo con CLINICAL HISTORY: fall Technique: Contiguous axial CT images of the head were acquired from the base of the skull to the vertex without intravenous contrast administration. Images were viewed in brain, subdural and bone windows. Automated dose lowering techniques and/or adjustment according to patient size were utilized for this exam. Comparison: None available at the time of this dictation. Findings: The ventricles, basal cisterns, and cerebral sulci are normal. There is no acute intracranial hemorrhage or evidence of acute territorial infarction. Neither mass effect, shift of the midline structures, nor abnormal extra-axial fluid collections are shown. Imaged portions of the paranasal sinuses and mastoid air cells are clear. The orbits appear normal. There are no acute fractures of the calvaria or scalp swelling. Impression: No acute intracranial hemorrhage, no evidence of acute territorial infarction or other acute intracranial disease process. ACT 112: Negative or not required by law. Electronically signed by: Milo Do M.D. 09/14/2023 8:[address] 09/14/23 18:57 CT cervical spine wo con CLINICAL HISTORY: fall TECHNIQUE: Multidetector row helical CT of the cervical spine was performed without administration of intravenous contrast. Coronal and sagittal reformations were obtained. Automated dose lowering techniques and/or adjustment according to patient size were utilized for this exam. Comparison: Comparison is made to cervical spine radiographs 05/18/2017 and thyroid ultrasound 06/10/2016 FINDINGS: No acute fractures or subluxations are identified. Degenerative changes are seen in the visualized spine. The alignment is normal. There is a 15 mm right thyroid nodule. IMPRESSION: 1. Degenerative changes without evidence of acute bony injury. 2. 15 mm right thyroid nodule which has previously been evaluated by ultrasound. ACT 112: Negative or not required by law. Electronically signed by: Milo Do M.D. 09/14/2023 7:56 PM ECG Data Attestation: I personally reviewed and interpreted this ECG as follows: Rate (beats per minute): 74 Rhythm: + normal sinus ECG Intervals/blocks: + Normal QRS, + Normal VT and + Normal QT-c ECG ST segments: + Normal ST segments ECG Findings: + PVCs [facility] Narrative 1836: The patient was evaluated in room C5. A complete history and physical exam was performed Cardiac monitoring: An order was placed for continuous cardiac monitoring. The monitor shows a rate of 70 with sinus rhythm interpreted by vt 2049: Vital signs stable. Labs are within normal limits with exception of sodium of 126 and a elevated high-sensitivity troponin of 35.9. Imaging shows no pulm embolus or traumatic injury. [facility] Olvera's team will be notified. Impression & Plan Hyponatremia, Elevated troponin, COVID-19 Discharge Plan Visit Data Chief Complaint: Flu Like Symptoms Stated Complaint: COVID+, DIZZINESS, FALL IN SHOWER ED Provider: Jerzy Stewart Discharge Problem: Hyponatremia, Elevated troponin, COVID-19 Patient Disposition: Admitted As Inpatient Discharge Instructions Interventions: ED Discharge Assessment Last Done: 09/14/23 23:43
[2023-09-15 05:19] LABS: BUN Creatinine Ratio 16.1 (10-20); Calcium 8.3 mg/dl (8.6-10.3); Creatinine Clr Calc Pharmacy 78.4 ml/min; Est GFR (African American) 100.8 ml/min; Potassium 2.9 mmol/L (3.5-5.1)
[2023-09-15 05:33] LABS: Hematocrit (blood only) 39.4 % (37.0-47.0); Hemoglobin 13.5 g/dl (12.0-16.0); Mean Corpuscular Hemoglobin 28.2 pg (25.0-34.0); Mean Corpuscular Hgb Conc 34.3 g/dL (32.0-36.0); Mean Corpuscular Volume 82.4 fL (80.0-100.0); Mean Platelet Volume 12.1 fL (9.4-12.4); Platelet Count 156 K/uL (130-400); RDW Coefficient of Variation 13.3 % (11.5-14.5); RDW Standard Deviation 40.2 fL (36.4-46.3); Red Blood Count 4.78 M/uL (4.20-5.40); Thyroid Stimulating Hormone 1.295 uIu/ml (0.300-4.500); White Blood Count 7.66 K/ul (4.8-10.8)
[2023-09-15] MEDS: METOPROLOL SUCC 50MG EXT REL TAB PO SCH (08:38)
[2023-09-15] MEDS: guaiFENesin 600 MG TABCR PO SCH ×2 (08:38→22:01)
[2023-09-15] MEDS: amLODIPine BESYLATE 5 MG TAB PO SCH (08:39)
[2023-09-15] MEDS: LOSARTAN POTASSIUM 50 MG TAB PO SCH (08:39)
[2023-09-15] MEDS ORDERED: predniSONE 5 MG TAB PO SCH (09:00)
[2023-09-15] MEDS: POTASSIUM CHLORIDE CRTAB 20 MEQ TABCR PO SCH ×2 (09:39→22:00)
--- NOTE | 2023-09-15 13:10 | Hospitalist Progress Note ---
Date of Service September 15, 2023 Assessment & Plan (1) COVID-19: Plan: She does have a viral illness and COVID nasal swab is positive. No evidence of viral pneumonia. No indication for remdesivir or Paxlovid therapy. She is on vitamin D and parenteral steroid therapy. (2) Elevated troponin: Plan: Mild. No evidence of acute coronary syndrome. No acute EKG changes (3) Hypokalemia: Plan: Replacement therapy ordered. Serial lab (4) Hyponatremia: Plan: Serum osmolarity is mildly low. Fluid restriction ordered. Serial labs (5) PMR (polymyalgia rheumatica): Plan: Steroid-dependent. Currently on parenteral steroid therapy. Will check ESR (6) Generalized weakness: Plan: Supportive care. Treat underlying illness Plan Hopefully home within the next 24 to 48 hours Admission and Anticipated Discharge Date Admission Date: September 14, 2023 Subjective Alert and oriented. No distress. Son is at the bedside. She has viral symptoms and has a positive nasal swab for COVID. No evidence of viral pneumonia. She is weak and nearly fell in the shower. She is currently on IV fluids and parenteral steroid therapy. Vitamin D has been added. No indication for remdesivir or Paxlovid. OT and PT assessments have been requested. She is mildly hyponatremic on admission. We will follow. Hydrochlorothiazide is on hold. Mild hypokalemia is being treated. Troponin is minimally elevated with no acute EKG changes and no evidence of acute coronary syndrome. Review of Systems Review of Systems: Constitutional-no fever or chills ENT-no blurred vision, no double vision, no epistaxis, no sore throat Respiratory-no cough, no wheezing, no shortness of breath Cardiac-no palpitations, no chest pain, no syncope GI-no nausea, vomiting, diarrhea, melena, hematochezia -no urinary retention, no urinary incontinence, no dysuria, no hematuria Musculoskeletal-no joint pain, no muscle tenderness Skin-no bruising, no rashes, no pruritus Neuro-generalized weakness and Malays Psych-no depression, no anxiety Physical Exam Physical Exam: General-alert and oriented x3, no fevers, no chills HEENT-head atraumatic and normocephalic, pupils equal and reactive to light, extraocular muscles intact Neck-no lymphadenopathy or thyromegaly, trachea midline Chest-clear to auscultation percussion. No rales wheezing or rhonchi Cardiac-regular rate and rhythm, normal S1 and S2 Abdomen-normal bowel sounds, nontender, no hepatosplenomegaly Extremities-no cyanosis, clubbing, or edema Neuro-cranial nerves II through XII intact, motor and sensory function within normal limits, generalized weakness and Malays, no focal deficits Psych-normal affect, normal mood Results & Data Results & Data Vital Signs (Past 12 Hours) Vital Signs Pulse Resp BP Pulse Ox Pulse Ox O2 Del Method O2 Del Method 09/15/23 10:00 75 15 09/15/23 09:30 83 24 09/15/23 09:00 76 12 98 09/15/23 08:30 75 26 H 98 09/15/23 08:00 69 16 97 09/15/23 08:00 136/66 09/15/23 07:30 68 14 97 09/15/23 07:00 66 21 96 09/15/23 07:00 139/74 09/15/23 06:30 75 16 97 09/15/23 07:03 68 09/15/23 06:00 70 13 95 Nasal Cannula 09/15/23 06:00 138/68 09/15/23 05:30 73 17 97 Nasal Cannula 09/15/23 05:00 69 17 97 Nasal Cannula 09/15/23 05:00 151/76 H 09/15/23 04:36 86 14 09/15/23 04:08 133/68 09/15/23 04:08 67 15 97 Nasal Cannula 09/15/23 04:00 66 18 97 Nasal Cannula 09/15/23 03:30 65 17 96 Nasal Cannula 09/15/23 03:00 66 15 99 Nasal Cannula 09/15/23 04:08 99 Nasal Cannula 09/15/23 02:00 88 L Room Air, Nasal Cannula 09/15/23 02:00 71 15 95 O2 Flow Rate O2 Flow Rate 09/15/23 10:00 09/15/23 09:30 09/15/23 09:00 09/15/23 08:30 09/15/23 08:00 09/15/23 08:00 09/15/23 07:30 09/15/23 07:00 09/15/23 07:00 09/15/23 06:30 09/15/23 07:03 09/15/23 06:00 3 10/16/23 06:00 09/15/23 05:30 3 09/15/23 05:00 3 09/15/23 05:00 09/15/23 04:36 09/15/23 04:08 09/15/23 04:08 3 09/15/23 04:00 3 09/15/23 03:30 3 09/15/23 03:00 3 09/15/23 04:08 3 09/15/23 02:00 0 09/15/23 02:00 Laboratory Results 09/15/23 04:42 09/15/23 04:42 PG Care Time/CCT Total # of Minutes Spent Total Time Spent with Patient: Total time spent is greater than 50% in coordination of care (as documented) at patient's floor/unit and/or counseling patient: Coding Level of Care Code 36081 SUB INP/OBS CARE 3/50MIN Diagnoses COVID-19 U07.1 Elevated troponin R79.89 Hypokalemia E87.6 Hyponatremia E87.1 PMR (polymyalgia rheumatica) M35.3 Generalized weakness R53.1
[2023-09-15] MEDS: methylPREDNISolone 40 MG in SYRINGE 0 ML IV SCH ×2 (14:20→22:01)
[2023-09-15] MEDS: CHOLECALCIFEROL 1,000 UNITS 25 MCG TAB PO SCH (14:59)
[2023-09-15] MEDS ORDERED: AMITRIPTYLINE HCL 10 MG TAB PO SCH (21:00)
[2023-09-15] MEDS ORDERED: MELATONIN 3 MG TAB PO SCH (21:00)
[2023-09-16 05:20] LABS: BUN Creatinine Ratio 22.4 (10-20); Creatinine Clr Calc Pharmacy 83.8 ml/min; Est GFR (Non-African American) 88.9 ml/min; Potassium 3.9 mmol/L (3.5-5.1)
[2023-09-16] MEDS: methylPREDNISolone 40 MG in SYRINGE 0 ML IV SCH (05:23)
--- NOTE | 2023-09-16 07:05 | Electrocardiogram Report ---
Test Reason : Blood Pressure : / mmHG Vent. Rate : 074 BPM Atrial Rate : 074 BPM P-R Int : 200 ms QRS Dur : 082 ms QT Int : 412 ms P-R-T Axes : 050 -15 066 degrees QTc Int : 457 ms Sinus rhythm with occasional Premature ventricular complexes and Premature atrial complexes Moderate voltage criteria for LVH, may be normal variant ( R in aVL , Hamilton product ) Inferior infarct , age undetermined Anterior infarct (cited on or before 14-SEP-2023) Abnormal ECG When compared with ECG of 10-JUL-2012 09:47, Premature ventricular complexes are now Present Premature atrial complexes are now Present Confirmed by Delroy Frankel ([id number]) on 09/16/2023 7:04:51 AM Referred By: REFERRED SELF Confirmed By:Delroy Frankel
[2023-09-16] MEDS: POTASSIUM CHLORIDE CRTAB 20 MEQ TABCR PO SCH (07:35)
[2023-09-16] MEDS: LOSARTAN POTASSIUM 50 MG TAB PO SCH (07:36)
[2023-09-16] MEDS: CHOLECALCIFEROL 1,000 UNITS 25 MCG TAB PO SCH (07:36)
[2023-09-16] MEDS: METOPROLOL SUCC 50MG EXT REL TAB PO SCH (07:36)
[2023-09-16] MEDS: amLODIPine BESYLATE 5 MG TAB PO SCH (07:36)
[2023-09-16] MEDS: guaiFENesin 600 MG TABCR PO SCH (07:36)
--- NOTE | 2023-09-16 13:16 | Discharge Summary ---
Date of Service September 16, 2023 Admission HPI Per Admitting Provider 78yo Female with PMH PMR IBS insomnia HLD anxiety GERD HTN rosacea here for concern COVID and fall. Patient states her COVID19 symptoms started on friday had headache cough sore throat nausea poor appetite, she had not been eating regular meals was drinking lots of water taking her medications sleeping more. She took tylenol for her symptoms. This is her first time with COVID 19. Patient was planning to go to ED for COVID symptoms, she took a shower first became lightheaded in shower fell hit her head and scrapped skin on her right middle finger. In ED she was given zofran tylenol and 1L NSS which improved her symptoms. CT scan head c spine chest wnl. Patient understands her sodium was incidentally low today. Patient is ambulatory at baseline, lives with and son. Son caught COVID on friday. Principal Diagnosis Viral illness, possible COVID infection, generalized weakness, hypokalemia, hyponatremia, demand ischemia Discharge Exam General-alert and oriented x3, no fevers, no chills HEENT-head atraumatic and normocephalic, pupils equal and reactive to light, extraocular muscles intact Neck-no lymphadenopathy or thyromegaly, trachea midline Chest-clear to auscultation percussion. No rales wheezing or rhonchi Cardiac-regular rate and rhythm, normal S1 and S2 Abdomen-normal bowel sounds, nontender, no hepatosplenomegaly Extremities-no cyanosis, clubbing, or edema Neuro-cranial nerves II through XII intact, motor and sensory function within normal limits, generalized weakness and Malays, no focal deficits Psych-normal affect, normal mood Discharge Data Allergies Allergy/AdvReac Type Severity Reaction Status Date / Time lansoprazole Allergy Unknown Unknown Verified 09/14/23 22:11 lisinopril Allergy Unknown Cough Verified 09/14/23 22:11 naproxen Allergy Unknown Unknown Verified 09/14/23 22:11 [From PREVACID NapraPAC] sulfamethoxazole Allergy Unknown Headache Verified 09/14/23 22:11 and nausea. trimethoprim Allergy Unknown Headache Verified 09/14/23 22:11 and nausea. chlorhexidine AdvReac Severe -severe Verified 09/14/23 22:11 skin rash Consultations 09/14/23 20:48 ED Decision to Admit Stat Ordered Studies 09/14/23 18:56 CT angio chest PE protocol Stat CT head/brain wo con Stat 09/14/23 18:57 CT cervical spine wo con Stat Hospital Course (1) COVID-19: She does have a viral illness on admission and COVID nasal swab was positive. No evidence of viral pneumonia. No indication for remdesivir or Paxlovid therapy. She was treated with vitamin D and parenteral steroid therapy. (2) Elevated troponin: Mild. No evidence of acute coronary syndrome. No acute EKG changes (3) Hypokalemia: Replacement therapy ordered. Serial lab. Corrected (4) Hyponatremia: Serum osmolarity is mildly low. Fluid restriction ordered. Serial labs. Corrected (5) PMR (polymyalgia rheumatica): Steroid-dependent. Treated while hospitalized with parenteral steroid therapy. Steroid taper at discharge (6) Generalized weakness: Supportive care. Treat underlying illness Plan Home todaySeptember 16 Total Time Total Time Spent Total Time Spent (In Minutes): 40 minutes Discharge Plan Discharge Items Patient Disposition: Home - Self-Care Reason For Visit: FALL Discharge Diagnosis: Viral illness, COVID positivity by nasal swab, demand ischemia, hypokalemia, hyponatremia, generalized weakness Activity: Resume your previous activity Non-emergency contact: Primary Care Provider Call non-emergency contact if: your symptoms worsen Follow-up/Referrals: Kisha Zhou MD [Primary Care Provider] - Diet: Regular Addtl Attending Provider Instructions: Take prednisone in a tapering dose fashion down to your usual 5 mg daily. Hydrochlorothiazide has been stopped Pending Studies at Discharge: No Stand-Alone Forms: My [facility] [employer], Smoking Cessation Medications and DC Order Prescriptions: New prednisone 10 mg tablet See Rx Instructions .ROUTE .COMPLEX Qty: 12 0RF Rx Instructions: 10 mg orally 3 times a day for 2 days, then 10 mg twice a day for 2 days, then 10 mg daily for 2 days, then resume 5 mg daily as usual cholecalciferol (vitamin D3) 25 mcg (1,000 unit) Capsule 1,000 unit PO QAM Qty: 0 0RF Continued cholecalciferol (vitamin D3) 2,000 unit tablet 5,000 units PO DAILY nystatin-triamcinolone 100,000-0.1 unit/gram-% ointment 1 appln TOP DAILY PRN (Reason: skin irritation) Qty: 30 3RF metoprolol succinate 100 mg tablet extended release 24 hr 100 mg PO DAILY Qty: 90 3RF prednisone 5 mg tablet 5 mg PO DAILY Qty: 90 0RF amlodipine 10 mg tablet 10 mg PO DAILY Qty: 90 3RF diclofenac sodium 1 % gel 2 gm topical QID PRN (Reason: Pain) PreserVision AREDS-2 250-90-40-1 mg capsule 1 tab PO .once a day mupirocin 2 % ointment 1 applic topical BID PRN (Reason: Skin Irritation) ascorbic acid (vitamin C) 1,000 mg capsule 1 g PO DAILY melatonin 3 mg Tablet 3 mg PO HS telmisartan 40 mg tablet 40 mg PO DAILY Rx Instructions: TAKE 1 TABLET BY MOUTH ONCE DAILY amitriptyline 10 mg tablet 10 - 20 mg PO DAILY Discontinued hydrochlorothiazide 12.5 mg tablet 12.5 mg PO DAILY Qty: 90 3RF Discharge Orders: Discharge Order (Routine); Ordered 09/16/23 Ordered By: Michael Espinoza Admission Data Admit Date/Time: 09/14/23 22:48 Attending Provider: Michael Espinoza Admit Provider: Melissa Smith Primary Care Provider: Kisha Zhou Other Providers: Tato Salinas Coding Level of Care Code 74356 INP/OBS DISCH >30 MIN Diagnoses COVID-19 U07.1 Elevated troponin R79.89 Hypokalemia E87.6 Hyponatremia E87.1 PMR (polymyalgia rheumatica) M35.3 Generalized weakness R53.1
--- NOTE | 2023-09-18 13:53 | Billing Data ---
Date of Service September 18, 2023 Coding Level of Care Code 12541 INT INP/OBS CARE
== END 2023-09-16 14:00 | disposition home or self-care (01) ==
LOC: ED 15:24 → EDINP 15:24 → SUATTDRO 22:48 → EDINP 23:43

== ENCOUNTER 2023-10-09 12:19 | Observation (INO) ==
--- NOTE | 2023-10-09 13:05 | Emergency Department Note ---
Impression & Plan Left pulmonary embolus, COVID-19 ED Provider Note NAME: ISABELLE BORDEN AGE: 78 SEX: F : 1945 ARRIVES VIA: Walk-In INFORMANT: [Patient][, ] ED PROVIDER(S): [Noel Pantoja MD] CHIEF COMPLAINT: Abnormal outpatient CT scan MEDICAL DECISION MAKING: Patient presents due to concern for an abnormal outpatient CT scan which does show PE within the left main pulmonary artery and extends distally. Patient had received this as an outpatient in the setting of recent COVID illness but with left-sided chest pain. IV was established and blood work is obtained. Given the location Patient's blood work shows a normal white count H&H and platelet count kidney function is unremarkable. The patient's INR is normal. Kidney function is unremarkable lipase is slightly elevated at 113 but no epigastric pain troponin is not elevated. EKG with no signs of obvious ischemia. Critical Care: I have personally spent 37 minutes of critical care time in direct management of this patient. This includes bedside care, interpretation of diagnostic studies, and testing, discussion with consultants, patient, and family members, and other require inpatient management activities. This 37 minutes is in excess of all separately billable procedures. Discussion w/ other healthcare providers: [None] Prior /Outside records reviewed: I reviewed the patient's outpatient CT scan which does show PE within the left main pulmonary artery and extends distally Differential diagnosis: Cardiac ischemia, aortic dissection, pulmonary embolism, pneumothorax, pneumonia, pericarditis, myocarditis, GERD, cholecystitis, pancreatitis, musculoskeletal, as well as other pathologies were considered. Diagnostics, as interpreted by me: ECG: Normal sinus rhythm, rate of 86, borderline ID, normal axis no obvious STEMI. Cardiac monitoring: An order was placed for continuous cardiac monitoring. The monitor shows a rate of 72 with sinus rhythm. [Patient was placed on pulse oximetry] Medical decision rules: Wells score Imaging studies: [I informally interpreted the patient's chest x-ray which does not show obvious pneumonia or pneumothorax with formal report to follow.] [] HPI: Patient presents due to concern for abnormal outpatient CT results. The patient states that she did have COVID toward the end of August seem to be recovering from that but had complained of some left-sided chest pain. Patient denies any leg swelling or calf pain. The patient may have been laid up for a little bit given the COVID illness but denies any recent surgeries or procedures or prolonged car plane travel. No prior history of DVT or PE. Patient has had cough but it has been nonproductive. Patient is a non-smoker. Patient did have the CAT scan completed today and was called about the results concerning for blood clot. Patient denies any hemoptysis. PAST MEDICAL HISTORY: [See Below] PAST SURGICAL HISTORY: [See Below] SOCIAL HISTORY: [See Below] HOME MEDICATIONS: [See Below] ALLERGIES: [See Below] VITALS: [See Below] PHYSICAL EXAMINATION: GENERAL: NAD, non-toxic. EYE EXAM: Normal conjunctiva. PERRL, no anisocoria and EOM's grossly intact w/o pain. OROPHARYNX: Moist mucus membranes, grossly normal dentition. NECK: Supple, no nuchal rigidity, no adenopathy, non-tender. No signs of meningismus. FROM of the neck with good chin to chest and neck extension. No stridor. LUNGS: Clear to auscultation. Normal chest wall mechanics. HEART: NSR, no MRG. ABDOMEN: Abdomen soft, non-tender, no masses, no rebound or guarding. BACK: No CVA TTP. SKIN: No rashes and no bruising. UPPER EXTREMITIES: Upper extremities are grossly normal. LOWER EXTREMITIES: Grossly normal, no edema. Negative Homans' sign bilaterally. NEURO EXAM: A&O x3, cranial nerves II-XII grossly intact, normal speech, moves all 4 extremities. Past Med/Surg History Medical History PMR (polymyalgia rheumatica) HTN (hypertension) Postmenopause Chicken pox Fibroids Thyroid disease Mesenteric panniculitis Vitamin D deficiency Supraventricular tachycardia Sleep terror disorder Rosacea Osteopenia Irritable bowel syndrome Insomnia Impaired fasting glucose Hyperlipidemia, acquired Headache Generalized anxiety disorder Gastroesophageal reflux disease without esophagitis Fuchs' corneal dystrophy Cervical arthritis Abdominal pain of unknown cause Diverticulitis Surgical History S/P [facility] 05/2020, Dr. Ayoub S/P D&C (status post dilation and curettage) polyp removal S/P thyroid surgery History of hysteroscopy S/P colonoscopy History of esophagogastroduodenoscopy (EGD) Hx of tonsillectomy H/O thyroidectomy Family History Unknown Cardiovascular disease Father Coronary heart disease Diabetes Hyperlipemia Myocardial infarction Mother Lung cancer Cancer Brother Stomach cancer Coronary heart disease Acute myocardial infarction Lung cancer Hypertension Hyperlipemia Stroke syndrome Myocardial infarction Cancer Stroke Sister Hyperlipemia Hypertension Grandfather (Paternal) Prostate cancer Other No family history of allergies No family history of bleeding disorder Thyroid disease Denies family history of Ovarian cancer Hearing loss Breast cancer Colorectal cancer Asthma Social History Smoking Status: Never smoker Second Hand Exposure: No; Do You Dip or Chew Tobacco: No; Hx Alcohol Use: No Hx Substance Use: No Preferred Language: Amharic Communication Ability: Effective Visual Impairment: Diminished Hearing Ability: Normal Consumer Loan Manager Required: No Beliefs That Will Affect Care: None marital status: Current Living Situation: Spouse current occupational status: retired How many Children do You have: 4 Feels Safe at Home: Yes Childhood Exposure to Second-Hand Smoke: Yes caffeine: Yes (coffee and tea ) Dental Care, Regularly: Yes Physical Activity Frequency: Does not Exercise Seatbelt Use: always Sunscreen Use: No (doesn't go out in the sun ) Assistive Devices: Glasses Allergies Allergies Allergy/AdvReac Type Severity Reaction Status Date / Time lansoprazole Allergy Unknown Unknown Verified 09/25/23 08:42 lisinopril Allergy Unknown Cough Verified 09/25/23 08:42 naproxen Allergy Unknown Unknown Verified 09/25/23 08:42 [From PREVACID NapraPAC] sulfamethoxazole Allergy Unknown Headache Verified 09/25/23 08:42 and nausea. trimethoprim Allergy Unknown Headache Verified 09/25/23 08:42 and nausea. chlorhexidine AdvReac Severe -severe Verified 09/25/23 08:42 skin rash Home Meds Home Medications Medication Instructions Recorded Confirmed cholecalciferol (vitamin D3) 50 5,000 units PO . AT NOON 01/11/20 10/09/23 mcg (2,000 unit) tablet diclofenac sodium 1 % topical gel 2 gm topical QID PRN Pain 07/11/20 10/09/23 mupirocin 2 % topical ointment 1 applic topical BID PRN Skin 01/23/21 10/09/23 Irritation vit C 250 mg-vit E 90 mg-zinc 40 1 tab PO .AT NOON 04/05/21 10/09/23 mg-copper 1 [id number] capsule (PreserVision AREDS-2) ascorbic acid (vitamin C) 1,000 mg 1 g PO . AT NOON 09/16/22 10/09/23 capsule melatonin 3 mg tablet 3 mg PO HS 09/14/23 10/09/23 telmisartan 40 mg tablet 40 mg PO QAM 09/14/23 10/09/23 amitriptyline 10 mg tablet 10 mg PO HS 09/17/23 10/09/23 amlodipine 10 mg tablet 10 mg PO QAM 10/09/23 10/09/23 metoprolol succinate 100 mg 100 mg PO QAM 10/09/23 10/09/23 tablet,extended release 24 hr prednisone 1 mg tablet 4 mg PO QAM 10/09/23 10/09/23 Previous Rx's Medication Instructions Recorded nystatin-triamcinolone 100,000 1 applic topical DAILY PRN skin 09/25/23 unit/gram-0.1 % topical ointment irritation #60 grams Results & Data (ED) Vital Signs Vital Signs - 24 hr 10/09/23 12:25 10/09/23 13:35 Temperature 36.7 C Temperature Source Skin Pulse Rate 98 H 70 Respiratory Rate 18 Blood Pressure 155/76 H Blood Pressure Mean 102 Pulse Oximetry 96 Oxygen Delivery Method Room Air Sepsis Recent Fever Within 48 Hours No Sepsis New/Unexplained Change in Mental Status No Sepsis Action Taken by Nursing No Action Required Home Medications Current Medication List: was personally reviewed by me Laboratory Data Attestation: I reviewed the patient's lab results. 10/09/23 13:50 10/09/23 17:44 Lab Results 10/09/23 10/09/23 Range/Units 13:50 15:05 WBC 8.47 (4.8-10.8) K/ul RBC 4.70 (4.20-5.40) M/uL Hgb 13.5 (12.0-16.0) g/dl Hct 41.2 (37.0-47.0) % MCV 87.7 (80.0-100.0) fL MCH 28.7 (25.0-34.0) pg MCHC 32.8 (32.0-36.0) g/dL RDW Std Deviation 44.6 (36.4-46.3) fL RDW Coeff of Adalid 13.9 (11.5-14.5) % Plt Count 214 (130-400) K/uL MPV 11.9 (9.4-12.4) fL Immature Gran % (Auto) 0.4 % Neut % (Auto) 73.2 % Lymph % (Auto) 17.9 % Union % (Auto) 8.0 % Eos % (Auto) 0.0 % Baso % (Auto) 0.5 % Neut # (Auto) 6.20 (1.40-6.50) K/uL Lymph # (Auto) 1.52 (1.20-3.40) K/uL Union # (Auto) 0.68 H (0.11-0.59) K/uL Eos # (Auto) 0.00 (0.00-0.50) K/uL Baso # (Auto) 0.04 (0.00-0.20) K/uL Immature Gran # (Auto) 0.03 (0.01-0.20) K/uL PT Cancelled INR Cancelled APTT Cancelled PTT Ratio Cancelled Sodium Cancelled Potassium Cancelled Chloride Cancelled Carbon Dioxide Cancelled Anion Gap Cancelled BUN Cancelled Creatinine Cancelled Est Cr Clr Drug Dosing Cancelled Est GFR ( Amer) Cancelled Est GFR (Non-Af Amer) Cancelled BUN/Creatinine Ratio Cancelled Glucose Cancelled Calcium Cancelled Total Bilirubin Cancelled AST Cancelled ALT Cancelled Alkaline Phosphatase Cancelled Troponin I High Sens Cancelled Total Protein Cancelled Albumin Cancelled Globulin Cancelled Albumin/Globulin Ratio Cancelled Lipase Cancelled SARS-CoV-2, RNA, NAAT NEGATIVE (NEGATIVE) Administered Medications Amitriptyline HCl (Amitriptyline Hcl 10 Mg Tab) 10 mg PO HS LANCE Stop: 11/08/23 20:59 Last Admin: 10/09/23 20:47 Dose: 10 mg Documented By: TRN Apixaban (Apixaban 5 Mg Tablet) 10 mg PO BID LANCE Stop: 10/16/23 21:01 Last Admin: 10/10/23 08:15 Dose: 10 mg Documented By: BCDeshawn Losartan Potassium (Losartan Potassium 50 Mg Tab) 50 mg PO QAM LANCE Stop: 11/09/23 08:59 Last Admin: 10/10/23 08:15 Dose: 50 mg Documented By: ERIC Melatonin (Melatonin 3 Mg Tab) 3 mg PO HS [facility] Stop: 11/08/23 20:59 Last Admin: 10/09/23 20:47 Dose: 3 mg Documented By: TRN Metoprolol Succinate (Metoprolol Succ 50mg Ext Rel Tab) [address] [facility] Stop: 11/09/23 08:59 Last Admin: 10/10/23 08:15 Dose: 100 mg Documented By: BCD Prednisone (Prednisone 1 Mg Tab) [address] [facility] Stop: 11/09/23 08:59 Last Admin: 10/10/23 08:15 Dose: 4 mg Documented By: ERIC Discontinued Medications Heparin Sodium (Porcine) (Heparin Sod (Porcine) 1000 Unit/Ml) 5,000 units IV NOW ONE Stop: 10/09/23 15:01 Last Admin: 10/09/23 14:55 Dose: 5,000 units Documented By: ARS Co-signed By: ROBERTO Heparin Sodium/Dextrose (Heparin Iv Adult Wt-Based Standard With Bolus Protocol) 1 each IV NOW [facility]; Protocol Stop: 10/09/23 13:28 Last Admin: 10/09/23 19:08 Dose: Not Given Documented By: ERIC Heparin Sodium/Dextrose (Heparin Sodium/Dextrose) 25,000 units in 500 mls @ 21 mls/hr IV .[id number] [facility]; Protocol Stop: 10/10/23 08:00 Last Titration: 10/10/23 08:17 Dose: Infused Documented By: ERIC Co-signed By: RRR Titration: 10/10/23 07:10 Dose: 1,000 units/hr, 20 mls/hr Documented By: ERIC Co-signed By: TRN Titration: 10/09/23 23:31 Dose: 1,050 units/hr, 21 mls/hr Documented By: TRN Co-signed By: AMS Titration: 10/09/23 22:12 Dose: 0 units/hr, 0 mls/hr Documented By: TRN Co-signed By: TYSHAWN Titration: 10/09/23 19:04 Dose: 1,200 units/hr, 24 mls/hr Documented By: LUIS Co-signed By: ERIC Admin: 10/09/23 14:55 Dose: 1,200 units/hr, 24 mls/hr Documented By: CAMMY Co-signed By: ROBERTO Miscellaneous (Heparin Stop Order) 1 each N/A ONE ONE Stop: 10/10/23 08:01 Last Admin: 10/10/23 08:13 Dose: 1 each Documented By: ERIC Imaging Data Radiologist's Impression: Chest X-Ray 10/09/23 13:27 SINGLE VIEW CHEST CLINICAL HISTORY: Atypical chest pain. FINDINGS: An AP, portable, upright chest radiograph is compared to study dated 09/24/2023 and correlated with chest CT performed the same day 10/09/2023. The cardiomediastinal silhouette is unremarkable. Chronic interstitial thickening similar to previous. The lungs and pleural spaces are clear. No pneumothorax is seen. The skeletal structures are osteopenic. The bony thorax is grossly intact. IMPRESSION: No active disease in the chest. ACT 112: Negative or not required by law. Electronically signed by: Armando Croft M.D. 10/09/2023 1:44 PM Discharge Plan Visit Data Chief Complaint: Referred by Doctor Stated Complaint: CAT SCAN, REF BY ; BLOOD CLOT ED Provider: Noel Pantoja Discharge Problem: Left pulmonary embolus, COVID-19 Patient Disposition: Admitted As Inpatient Discharge Instructions Interventions: ED Discharge Assessment Last Done: 10/09/23 16:07
[2023-10-09] MEDS ORDERED: Heparin IV Adult Wt-Based Standard WITH Bolus Protocol IV STA (13:27)
[2023-10-09] MEDS ORDERED: HEPARIN SOD (PORCINE) 1000 UNIT/ML IV ONE ×2 (13:44→15:00)
[2023-10-09] MEDS ORDERED: Heparin IV Adult Wt-Based Standard WITH Bolus Protocol IV SCH (13:45)
[2023-10-09] MEDS ORDERED: HEPARIN SODIUM/DEXTROSE 25,000 UNITS/500 ML BAG IV SCH (13:45)
--- NOTE | 2023-10-09 13:45 | XRay Report ---
SINGLE VIEW CHEST CLINICAL HISTORY: Atypical chest pain. FINDINGS: An AP, portable, upright chest radiograph is compared to study dated 09/24/2023 and correla eitan with chest CT performed the same day 10/09/2023. The cardiomediastinal silhouette is unremarkable. Chronic interstitial thickening similar to previous. The lungs and pleural spaces are clear. No pneu mothorax is seen. The skeletal structures are osteopenic. The bony thorax is grossly intact. IMPRESSION: No active disease in the chest. ACT 112: Negative or not required by law. Electronically signed by: Armando Croft M.D. 10/09/2023 1:44 PM
--- NOTE | 2023-10-09 13:53 | History & Physical Report ---
Date of Service October 09, 2023 Assessment & Plan (1) Left pulmonary embolus: Plan: Pt is a 78 yo female with PMH of SVT, IBS, osteopenia, YARY, GERD, PMR, and Fuchs' corneal dystrophy presenting to the ED at the prompting of her PCP due to CT findings of a PE. Left pulmonary embolus - provoked; in the setting of recent COVID infection - pt relatively asymptomatic and hemodynamically stable - heparin ordered in ED; will continue overnight and plan to transition to eliquis 10 mg BID x7 days starting tomorrow morning - as PE appears provoked, pt will need anticoagulated for at least 3-6 mths- recommend benefits and risks discussion with PCP at that time to determine length of tx - pain management with tylenol 650mg q4hr PRN COVID - hospitalized 09/14-09/16 - pt received an increased dose of steroids d/t her infection; has since reached her pre-infection steroid dose (5mg daily) - continue supportive care PRN PMR - pt continuing to wean off her chronic steroids with success - currently on 4mg prednisone daily Hx of elevated troponin - troponin still pending upon admission - if significantly elevated, would order echo to evaluate for significant right heart strain HTN - continue home telmisartan 40 mg daily and amlodipine 10 mg daily SVT - continue home metoprolol 100 mg daily YARY/insomnia - continue home amitriptyline 10 mg HS, melatonin 3 mg HS Diet: heart healthy DVT ppx: heparin drip, transition to eliquis tomorrow AM Code: full Dispo: observation- med/surg with tele (2) COVID-19: (3) PMR (polymyalgia rheumatica): (4) HTN (hypertension): (5) Generalized anxiety disorder: History of Present Illness Chief Complaint: referred by PCP Primary Care Provider: Kisha Zhou MD Pt is a 78 yo female with PMH of SVT, IBS, osteopenia, YARY, GERD, PMR, and Fuchs' corneal dystrophy presenting to the ED at the prompting of her PCP due to CT findings of a PE. Pt was seen 09/24/2023 by her PCP for a hospital f/u. She was recently hospitalized 09/14-09/16 due to COVID-19 infection and fall. She was found to be hyponatremic and hypokalemic at that visit and she was to get repeat labs which were WNL. Pt states the nurse from her PCP office called to check on her since her last appt and the pt mentioned that she had left sided chest/rib/breast pain that began ~2 days ago. This pain was worse when she coughed. Due to this new pain, her PCP's office ordered a CT chest for evaluation. CT from this AM showed PE in the distal left main pulmonary artery and within subsegmental branches of the LLL pulmonary artery. There were also airspace opacities in the superior RLL consistent with an infectious process. Pt endorses that she has had a lingering cough since her COVID infection. As noted, her left sided chest pain only began 2 days ago. She denies feeling SOB, feverish, or anterior chest pain. She denies hx of blood clots and is not on a blood thinner at home. In the ED, pt was hemodynamically stable. Her CBC was WNL. PT/INR, CMP, lipase, and troponin still pending upon admission. She was started on heparin. CXR was neg. Allergies Allergy/AdvReac Type Severity Reaction Status Date / Time lansoprazole Allergy Unknown Unknown Verified 09/25/23 08:42 lisinopril Allergy Unknown Cough Verified 09/25/23 08:42 naproxen Allergy Unknown Unknown Verified 09/25/23 08:42 [From PREVACID NapraPAC] sulfamethoxazole Allergy Unknown Headache Verified 09/25/23 08:42 and nausea. trimethoprim Allergy Unknown Headache Verified 09/25/23 08:42 and nausea. chlorhexidine AdvReac Severe -severe Verified 09/25/23 08:42 skin rash Home Medications Medication Instructions Recorded Confirmed Type cholecalciferol (vitamin D3) 50 5,000 units PO . AT NOON 01/11/20 10/09/23 History mcg (2,000 unit) tablet diclofenac sodium 1 % topical gel 2 gm topical QID PRN Pain 07/11/20 10/09/23 History mupirocin 2 % topical ointment 1 applic topical BID PRN Skin 01/23/21 10/09/23 History Irritation vit C 250 mg-vit E 90 mg-zinc 40 1 tab PO .AT NOON 04/05/21 10/09/23 History mg-copper 1 os-rxmbnk-tjvavl capsule (PreserVision AREDS-2) ascorbic acid (vitamin C) 1,000 mg 1 g PO . AT NOON 09/16/22 10/09/23 History capsule melatonin 3 mg tablet 3 mg PO HS 09/14/23 10/09/23 History telmisartan 40 mg tablet 40 mg PO QAM 09/14/23 10/09/23 History amitriptyline 10 mg tablet 10 mg PO HS 09/17/23 10/09/23 History nystatin-triamcinolone 100,000 1 applic topical DAILY PRN skin 09/25/23 10/09/23 Rx unit/gram-0.1 % topical ointment irritation #60 grams amlodipine 10 mg tablet 10 mg PO QAM 10/09/23 10/09/23 History metoprolol succinate 100 mg 100 mg PO QAM 10/09/23 10/09/23 History tablet,extended release 24 hr prednisone 1 mg tablet 4 mg PO QAM 10/09/23 10/09/23 History Past Med/Surg History Medical History Abdominal pain of unknown cause Cervical arthritis Chicken pox Diverticulitis Fibroids Fuchs' corneal dystrophy Gastroesophageal reflux disease without esophagitis Generalized anxiety disorder Headache Hyperlipidemia, acquired Impaired fasting glucose Insomnia Irritable bowel syndrome Mesenteric panniculitis Osteopenia Postmenopause Rosacea Sleep terror disorder Supraventricular tachycardia Thyroid disease Vitamin D deficiency Surgical History H/O thyroidectomy History of esophagogastroduodenoscopy (EGD) History of hysteroscopy Hx of tonsillectomy S/P colonoscopy S/P D&C (status post dilation and curettage) S/P RAY-BSO S/P thyroid surgery Family History Unknown Cardiovascular disease Father Coronary heart disease Diabetes Hyperlipemia Myocardial infarction Mother Lung cancer Cancer Brother Stomach cancer Coronary heart disease Acute myocardial infarction Lung cancer Hypertension Hyperlipemia Stroke syndrome Myocardial infarction Cancer Stroke Sister Hyperlipemia Hypertension Grandfather (Paternal) Prostate cancer Other No family history of allergies No family history of bleeding disorder Thyroid disease Denies family history of Ovarian cancer Hearing loss Breast cancer Colorectal cancer Asthma Social History Smoking Status: Never smoker Second Hand Exposure: No; Do You Dip or Chew Tobacco: No; Hx Alcohol Use: Yes Alcohol type: wine Alcohol Intake Frequency: Monthly or Less Alcohol Intake Frequency Comment: rarely has wine Hx Substance Use: No Preferred Language: Icelandic Communication Ability: Effective Visual Impairment: Diminished Hearing Ability: Normal Stab Setter And Driller Required: No Beliefs That Will Affect Care: None marital status: Current Living Situation: Spouse current occupational status: retired How many Children do You have: 4 Feels Safe at Home: Yes Childhood Exposure to Second-Hand Smoke: Yes caffeine: Yes (coffee and tea ) Dental Care, Regularly: Yes Physical Activity Frequency: Does not Exercise Seatbelt Use: always Sunscreen Use: No (doesn't go out in the sun ) Assistive Devices: None Physical Exam Constitutional: NAD, vitals WNL. Eyes: PERRLA. Conjunctivae normal. Respiratory: CTA bilaterally. Non labored breathing. No rhonchi, wheezing, or crackles. Cardiovascular: RRR. No murmurs noted. No LE edema. Gastrointestinal (Abdomen): Nontender, +BS. No masses noted. Skin: No rashes or skin lesions noted. Neurologic: Sensation grossly intact. No FND appreciated. Psychiatric: Speech of normal pace and content. Mood and affect congruent. Results & Data Results & Data Vital Signs (Past 12 Hours) Vital Signs Temp Pulse Resp BP Pulse Ox O2 Del Method 10/09/23 13:35 70 10/09/23 12:25 36.7 C 98 H 18 155/76 H 96 Room Air Supervising Physician Co-Signing Physician Notes Patient seen and examined, chart reviewed, case discussed with Bette Lovelace, and I agree with the assessment and plan as above except as otherwise noted Labs and images reviewed 78-year-old female with a history of COVID and hospitalization who subsequently had approximately week of left-sided rib/breast pain, underwent an outpatient CT and was noted to have a distal left pulmonary artery PE. She notes that her brother had a history of DVTs in the setting of gastric cancer, otherwise no family history of blood clots. Clear has never had a history of blood clots or bleeding problems. She has no chest pain other than some slight rib pain with deep inspiration. She does not feel short of breath and is not hypoxic on room air. Lungs are clear to auscultation, heart rate is regular. She has been started on a heparin drip. She was recommended for admission due to high risk of age, of note her Pesi score is low risk/class I. We will transition from heparin GTT to Eliquis twice daily dosing starting morning of 10/10/2023. Patient's was on warfarin and patient is well versed in the risks of anticoagulation and follow-up precautions. Currently hemodynamically stable. No evidence of dysrhythmia, no signs of heart strain on EKG. No signs of heart failure or fluid retention. Agree with assessment and management as above Resident Activity Tracking Resident Involvement: Resident Care Provided Care Provided: Adult Hospital Medicine (4) HTN (hypertension) Hypertension type: essential hypertension Qualified Code(s): I10 - Essential (primary) hypertension
[2023-10-09] MEDS ORDERED: ACETAMINOPHEN 325 MG TAB PO PRN (14:46)
[2023-10-09 14:48] LABS: Basophils # (auto) 0.04 K/uL (0.00-0.20); Basophils % (auto) 0.5 %; Hematocrit (blood only) 41.2 % (37.0-47.0); Hemoglobin 13.5 g/dl (12.0-16.0); Immature Granulocytes # (auto) 0.03 K/uL (0.01-0.20); Immature Granulocytes % (auto) 0.4 %; Lymphocytes # (auto) 1.52 K/uL (1.20-3.40); Lymphocytes % (auto) 17.9 %; Mean Corpuscular Hemoglobin 28.7 pg (25.0-34.0); Mean Corpuscular Hgb Conc 32.8 g/dL (32.0-36.0); Mean Corpuscular Volume 87.7 fL (80.0-100.0); Mean Platelet Volume 11.9 fL (9.4-12.4); Monocytes # (auto) 0.68 K/uL (0.11-0.59); Neutrophils % (auto) 73.2 %; Platelet Count 214 K/uL (130-400); RDW Coefficient of Variation 13.9 % (11.5-14.5); RDW Standard Deviation 44.6 fL (36.4-46.3); White Blood Count 8.47 K/ul (4.8-10.8)
[2023-10-09 16:30] LABS: Partial Thromboplastin Ratio > 4.9
[2023-10-09 16:46] LABS: Partial Thromboplastin Time > 139.0 Seconds (21.0-31.0)
--- NOTE | 2023-10-09 17:36 | Billing Data ---
Date of Service October 09, 2023 Coding Level of Care Code 14886 INT INP/OBS CARE
[2023-10-09 18:16] LABS: Albumin Globulin Ratio 1.2 (0.9-2); Albumin Level 3.8 gm/dl (3.4-5.0); BUN Creatinine Ratio 16.3 (10-20); Bilirubin,Total 0.4 mg/dl (0.2-1.0); Calcium 9.2 mg/dl (8.6-10.3); Creatinine Clr Calc Pharmacy 100.7 ml/min; Est GFR (African American) 108.9 ml/min; Globulin 3.2 gm/dl (2.5-4.0); Potassium 3.8 mmol/L (3.5-5.1)
[2023-10-09 18:22] LABS: Troponin I High Sensitivity 3.4 pg/ml (0-14)
[2023-10-09] MEDS ORDERED: MELATONIN 3 MG TAB PO SCH (21:00)
[2023-10-09] MEDS ORDERED: AMITRIPTYLINE HCL 10 MG TAB PO SCH (21:00)
[2023-10-09 21:48] LABS: Partial Thromboplastin Ratio 3.5
[2023-10-09 22:07] LABS: Partial Thromboplastin Time 98.8 Seconds (21.0-31.0)
[2023-10-10 07:01] LABS: Partial Thromboplastin Ratio 2.8
[2023-10-10 07:08] LABS: Partial Thromboplastin Time 77.8 Seconds (21.0-31.0)
[2023-10-10] MEDS ORDERED: HEPARIN STOP ORDER ONE (08:00)
--- NOTE | 2023-10-10 08:26 | Hospitalist Progress Note ---
Date of Service October 10, 2023 Assessment & Plan (1) Left pulmonary embolus: Plan: Pt is a 78 yo female with PMH of SVT, IBS, osteopenia, YARY, GERD, PMR, and Fuchs' corneal dystrophy presenting to the ED at the prompting of her PCP due to CT findings of a PE. Left pulmonary embolus - provoked; in the setting of recent COVID infection - heparin parenteral infusion transition to eliquis - pain management with tylenol 650mg q4hr PRN COVID - hospitalized 09/14-09/16 - pt received an increased dose of steroids d/t her infection; has since reached her pre-infection steroid dose (5mg daily) - continue supportive care PRN PMR - pt continuing to wean off her chronic steroids with success - currently on 4mg prednisone daily HTN - continue home telmisartan 40 mg daily and amlodipine 10 mg daily SVT - continue home metoprolol 100 mg daily YARY/insomnia - continue home amitriptyline 10 mg HS, melatonin 3 mg HS Diet: heart healthy DVT ppx: heparin drip, transition to eliquis tomorrow AM Code: full Dispo: observation- med/surg with tele (2) COVID-19: (3) PMR (polymyalgia rheumatica): (4) HTN (hypertension): (5) Generalized anxiety disorder: Admission and Anticipated Discharge Date Admission Date: October 09, 2023 Results & Data Results & Data Vital Signs (Past 12 Hours) Vital Signs Temp Pulse Pulse Resp BP Pulse Ox O2 Del Method 10/10/23 07:53 98.1 F 77 18 152/78 H 97 Room Air 10/10/23 07:45 62 10/10/23 04:00 98.2 F 68 18 132/72 94 Room Air 10/10/23 00:00 98.1 F 60 18 132/69 96 Room Air 10/09/23 22:01 66 PG Care Time/CCT Total # of Minutes Spent Total Time Spent with Patient: Total time spent is greater than 50% in coordination of care (as documented) at patient's floor/unit and/or counseling patient: Coding Diagnoses Left pulmonary embolus I26.99 COVID-19 U07.1 PMR (polymyalgia rheumatica) M35.3 Essential hypertension I10 Hypertension type: essential hypertension Generalized anxiety disorder F41.1 (4) HTN (hypertension) Hypertension type: essential hypertension Qualified Code(s): I10 - Essential (primary) hypertension
[2023-10-10] MEDS ORDERED: amLODIPine BESYLATE 5 MG TAB PO SCH (09:00)
[2023-10-10] MEDS ORDERED: METOPROLOL SUCC 50MG EXT REL TAB PO SCH (09:00)
[2023-10-10] MEDS ORDERED: LOSARTAN POTASSIUM 50 MG TAB PO SCH (09:00)
[2023-10-10] MEDS ORDERED: APIXABAN 5 MG TABLET PO SCH (09:00)
[2023-10-10] MEDS ORDERED: predniSONE 1 MG TAB PO SCH (09:00)
--- NOTE | 2023-10-10 11:54 | Communication Note ---
Date of Service: October 10, 2023 By CMS guidelines, a determination that the admission or continued stay is not medically necessary has been made by a member of the UR committee and a ph ysician for this hospital stay, therefore a Code 44 will be completed and the Inpatient admission will be changed to outpatient.
--- NOTE | 2023-10-10 12:49 | Electrocardiogram Report ---
Test Reason : Blood Pressure : / mmHG Vent. Rate : 086 BPM Atrial Rate : 086 BPM P-R Int : 202 ms QRS Dur : 074 ms QT Int : 388 ms P-R-T Axes : 044 -06 045 degrees QTc Int : 464 ms Normal sinus rhythm Minimal voltage criteria for LVH, may be normal variant ( R in aVL ) Poor R wave progression, consider anterior IA vs. lead placement vs. LVH Abnormal ECG When compared with ECG of 14-SEP-2023 19:10, Premature ventricular complexes are no longer Present Premature atrial complexes are no longer Present Criteria for Inferior infarct are no longer Present Confirmed by Juve Huffman ([id number]) on 10/10/2023 12:48:55 PM Referred By: REFERRED SELF Confirmed By:Juve Huffman
[2023-10-10 13:50] LABS: Partial Thromboplastin Ratio 1.5
--- NOTE | 2023-10-10 17:59 | Discharge Summary ---
Date of Service October 10, 2023 Admission HPI Per Admitting Provider Pt is a 78 yo female with PMH of SVT, IBS, osteopenia, YARY, GERD, PMR, and Fuchs' corneal dystrophy presenting to the ED at the prompting of her PCP due to CT findings of a PE. Pt was seen 09/24/2023 by her PCP for a hospital f/u. She was recently hospitalized 09/14-09/16 due to COVID-19 infection and fall. She was found to be hyponatremic and hypokalemic at that visit and she was to get repeat labs which were WNL. Pt states the nurse from her PCP office called to check on her since her last appt and the pt mentioned that she had left sided chest/rib/breast pain that began ~2 days ago. This pain was worse when she coughed. Due to this new pain, her PCP's office ordered a CT chest for evaluation. CT from this AM showed PE in the distal left main pulmonary artery and within subsegmental branches of the LLL pulmonary artery. There were also airspace opacities in the superior RLL consistent with an infectious process. Pt endorses that she has had a lingering cough since her COVID infection. As noted, her left sided chest pain only began 2 days ago. She denies feeling SOB, feverish, or anterior chest pain. She denies hx of blood clots and is not on a blood thinner at home. In the ED, pt was hemodynamically stable. Her CBC was WNL. PT/INR, CMP, lipase, and troponin still pending upon admission. She was started on heparin. CXR was neg. Principal Diagnosis pulmonary embolism Discharge Exam cardiac exam is regular lungs are clear Discharge Data Allergies Allergy/AdvReac Type Severity Reaction Status Date / Time lansoprazole Allergy Unknown Unknown Verified 09/25/23 08:42 lisinopril Allergy Unknown Cough Verified 09/25/23 08:42 naproxen Allergy Unknown Unknown Verified 09/25/23 08:42 [From PREVACID NapraPAC] sulfamethoxazole Allergy Unknown Headache Verified 09/25/23 08:42 and nausea. trimethoprim Allergy Unknown Headache Verified 09/25/23 08:42 and nausea. chlorhexidine AdvReac Severe -severe Verified 09/25/23 08:42 skin rash Consultations 10/09/23 13:47 ED Decision to Admit Stat Hospital Course (1) Left pulmonary embolus: Pt is a 78 yo female with PMH of SVT, IBS, osteopenia, YARY, GERD, PMR, and Fuchs' corneal dystrophy presenting to the ED at the prompting of her PCP due to CT findings of a PE. Left pulmonary embolus -Left pulmonary embolus - provoked; in the setting of recent COVID infection - heparin parenteral infusion transition to eliquis - pain management with tylenol 650mg q4hr PRN COVID - hospitalized 09/14-09/16 - pt received an increased dose of steroids d/t her infection; has since reached her pre-infection steroid dose (5mg daily) - continue supportive care PRN PMR - pt continuing to wean off her chronic steroids with success - currently on 4mg prednisone daily HTN - continue home telmisartan 40 mg daily and amlodipine 10 mg daily SVT - continue home metoprolol 100 mg daily YARY/insomnia - continue home amitriptyline 10 mg HS, melatonin 3 mg HS (2) COVID-19: (3) PMR (polymyalgia rheumatica): (4) HTN (hypertension): (5) Generalized anxiety disorder: Total Time Total Time Spent Total Time Spent (In Minutes): it required greater than 30 minutes to prepare this patient for discharge Discharge Plan Discharge Items Patient Disposition: Home - Self-Care Reason For Visit: PE Discharge Diagnosis: pulmonary emboiism Non-emergency contact: Primary Care Provider Call non-emergency contact if: you have any medication questions, your symptoms worsen and your pain is worsening Follow-up/Referrals: Kisha Zhou MD [Primary Care Provider] - 10/17/23 11:00 am Diet: Regular Addtl Attending Provider Instructions: you are started on eliquis 10 mg twice a day for one week last dose on 10/16 then start 5 mg twice a day on 10/17 Medication Instructions: Your condition is typically treated with an anticoagulant. Anticoagulants will thin your blood to help prevent new clots. * You should take her medication exactly as directed. * Never skip a dose. * Never take a double dose. If you miss a dose, take it as soon as you remember. Call your Primary Care doctor if you experience any of the following: * Swelling or Pain in your leg * Sudden, continuous pain deep in a muscle * Pain that worsens when you are active or when you stand still for a long time * Chest Pain * Sudden Shortness of Breath * Rapid or pounding heart beat * Fainting * Dizziness * Cough with blood or bloody sputum * Sweating more than normal * Bruises * Heavy or uncontrolled bleeding * Blood in your urine, stool or vomit * Black or tarry stools Caring for Your Self at Home: * Avoid sitting, standing or lying down for long periods without moving your legs and feet * When traveling by car, stop to get out and move around at least once every 3 hours * On long airplane, train or bus rides, get up and move around when possible * If you can't get up, wiggle your toes and tighten your calves to keep your blood moving Follow Up: It is important for you to keep your follow up appointments with your medical provider. Pending Studies at Discharge: No Stand-Alone Forms: My [facility] Medications and DC Order Prescriptions: New Eliquis 5 mg (74 tabs) tablets,dose pack 5 mg PO BID Qty: 74 0RF Rx Instructions: eliquis starter please have second RX after this first one Eliquis 5 mg tablet 5 mg PO BID Qty: 60 4RF Rx Instructions: not to start until 11/09/23, or after first started month is done Continued cholecalciferol (vitamin D3) 2,000 unit tablet 5,000 units PO . AT NOON diclofenac sodium 1 % gel 2 gm topical QID PRN (Reason: Pain) PreserVision AREDS-2 250-90-40-1 mg capsule 1 tab PO .AT NOON amitriptyline 10 mg tablet 10 mg PO HS Rx Instructions: 10 mg for IBS 20 mg for Severe IBS mupirocin 2 % ointment 1 applic topical BID PRN (Reason: Skin Irritation) ascorbic acid (vitamin C) 1,000 mg capsule 1 g PO . AT NOON nystatin-triamcinolone 100,000-0.1 unit/gram-% ointment 1 applic TOP DAILY PRN (Reason: skin irritation) Qty: 60 3RF melatonin 3 mg Tablet 3 mg PO HS telmisartan 40 mg tablet 40 mg PO QAM Rx Instructions: TAKE 1 TABLET BY MOUTH ONCE DAILY metoprolol succinate 100 mg tablet extended release 24 hr 100 mg PO QAM prednisone 1 mg tablet 4 mg PO QAM Rx Instructions: use to allow for slow taper. amlodipine 10 mg tablet 10 mg PO QAM Discharge Orders: Discharge Order (Routine); Ordered 10/10/23 Ordered By: Kuldip Duffy Admission Data Admit Date/Time: 10/09/23 15:08 Attending Provider: Kuldip Duffy Admit Provider: Nina Tracy Primary Care Provider: Kisha Zhou Other Providers: Chencho Zuniga Other Interventions: Discharge Summary Assessment (RN) Last Done: 10/10/23 12:25 Coding Level of Care Code 13085 INP/OBS DISCH >30 MIN Diagnoses Left pulmonary embolus I26.99 COVID-19 U07.1 PMR (polymyalgia rheumatica) M35.3 Essential hypertension I10 Hypertension type: essential hypertension Generalized anxiety disorder F41.1
== END 2023-10-10 13:15 | disposition home or self-care (01) | DRG 176 ==
LOC: ED 12:19 → 2N 15:08 → SUATTDRO 15:08 → INTOOBSV 15:08 → 2N 16:07